=== PATIENT | female | born 1955 | race Caucasian/White ===

== ENCOUNTER → 2018-06-02 13:27 | Outpatient (CLI) | payer MEDICARE, OTHER | END | disposition home or self-care (01) | LOC: D.CT 13:27 | DX: N32.1 Vesicointestinal fistula (principal) ==

== ENCOUNTER → 2018-06-17 07:09 | Outpatient (CLI) | payer MEDICARE, OTHER | END | disposition home or self-care (01) | LOC: D.MRI 07:09 | DX: N28.89 Other specified disorders of kidney and ureter (principal) ==

== ENCOUNTER 2018-06-30 07:57 | Day surgery (SDC) | payer MEDICARE, OTHER ==
[~2018-06-30] VITALS: Ht 157.5 cm; Wt 103.0 kg
--- NOTE | ~2018-06-30 | OP ---
PATIENT NAME: EDISON BRO MEDICAL RECORD: [id number] :51 LOCATION:D.OPS ADMISSION DATE: SURGEON: [place]STON THOMAS MD DATE OF OPERATION: 06/30/2018 SURGEON: [place] Thomas MD ANESTHESIA: TIVA by Gus Garcia CRNA. DIAGNOSES: Hematuria, interstitial cystitis. PROCEDURES: Cystoscopy and intravesical Rimso instillation. FINDINGS: Single ureteral orifices bilaterally, no bladder tumors. Diffuse bladder inflammation. BLOOD LOSS: None. CLINICAL HISTORY: This is a 62-year-old female, who had an issue with microscopic hematuria, pyuria, and recurrent urinary tract infection symptoms. Urine cultures have not shown any growth. She had a CT scan of the abdomen and pelvis, which showed a lesion in the mid pole of the left kidney. This was biopsied recently. Her mother did of a cystic renal cell carcinoma. She comes today to have cystoscopy to finish the hematuria workup and also to treat interstitial cystitis if she has it. THE PATIENT IS ALLERGIC TO BIAXIN, CODEINE, MORPHINE, AND ADHESIVE TAPE. She was given Ancef instructional support services director to the OR. DESCRIPTION OF PROCEDURE: The patient was given IV sedation. She was placed in the dorsal lithotomy position and prepped and draped. A 17-Ethiopian cystoscope with 30-degree lens was used for visualization. The findings are as outlined above. The bladder was emptied through the cystoscope sheath. Through a 16-Ethiopian Cm catheter, we inserted 50 mL of Rimso solution into the bladder. The catheter was then removed, leaving the solution in place. We will bring the patient back to the preoperative holding area. She will come back in July of 2018 to get the second Rimso treatment done. TRANSINT:[id number] Voice Confirmation ID: [id number] DOCUMENT ID: [id number] HOUSTON THOMAS MD at 1448 CC: [id number] DICTATION DATE: 06/30/18 1145 BUSINESS SUPPORT PROFESSIONAL: 06/30/18 1419 [facility] 06/30/[address] [address]
[~2018-06-30 07:57] MED LIST: CALCIUM 600 +1 EAC3 PO; CLARITIN 10 MG10 MG PO; FISH OIL 1,0001 CA1 PO; FLUTICASONE PRO16 GM NASAL; HYDROCHLOROTHIA25 MG PO; KLOR-CON 1010 MEQ PO; LEVOXYL50 MCG PO; LIPITOR20 MG PO; LISINOPRIL10 MG PO; MACRODANTIN100 MG PO; MAG-OX 400 MG400 MG PO; OMEPRAZOLE40 MG PO; PENTASA500 MG PO; PREVACID15 MG; TENORMIN50 MG PO; UROGESIC BLUE; VITAMIN D31000 UNIT PO; ZITHROMAX TRI-500 MG PO; ZOLOFT100 MG PO
[2018-06-30 08:13] LABS: BASOPHILS 0.5 % (0-2); EOSINOPHILS 1.1 % (0-7); HEMATOCRIT 44.1 % (36.0-48.0); HEMOGLOBIN 15.1 g/dL (12-16); IMMATURE GRANULOCYTES 0.3 % (0-5); LYMPHOCYTES 23.9 % (15-50); MCH 29.8 pg (26.0-34.0); MCHC 34.2 g/dL (31.0-37.0); MCV 87.2 fL (80.0-100.0); MEAN PLATELET VOLUME 12.1 fL (7.4-10.4); MONOCYTES 7.5 % (2-11); NEUTROPHILS 66.7 % (40-80); PLATELET COUNT 242 10x3/uL (130-400); RBC 5.06 10x6/uL (4.00-5.40); RDW 14.1 % (11.5-14.5); WBC 9.8 10x3/uL (4.8-10.8)
[2018-06-30 08:23] LABS: INR 0.97 (0.85-1.17); PROTIME 12.4 SECONDS (11.6-15.0)
[2018-06-30 08:24] LABS: APTT 25.9 SECONDS (22.8-39.4)
[2018-06-30] MEDS ORDERED: PEPCID AC20 MG PO (09:01)
[2018-06-30 09:24] VITALS: BP 125/76; Ht 157.5 cm; Wt 103.0 kg
== END 2018-06-30 12:37 | disposition home or self-care (01) ==
LOC: D.OPS 07:57 → D.PAN 09:45 → D.OPS 12:30
PROVIDERS: Anesthesiology
DX: N30.11 Interstitial cystitis (chronic) with hematuria (principal); Z01.812 Encounter for preprocedural laboratory examination

== ENCOUNTER → 2018-08-02 16:50 | Outpatient (CLI) | payer MEDICARE, OTHER ==
[2018-06-30 09:24] VITALS: BMI 41.6
[~2018-08-02 16:50] MED LIST changes: +PEPCID AC20 MG PO
== END | disposition home or self-care (01) ==
LOC: D.LABREF 16:50
DX: D72.829 Elevated white blood cell count, unspecified (principal)

== ENCOUNTER → 2018-08-16 16:33 | Outpatient (CLI) | payer MEDICARE, OTHER ==
[2018-06-30 09:24] VITALS: BMI 41.6
== END | disposition home or self-care (01) ==
LOC: D.LABREF 16:33
DX: D72.829 Elevated white blood cell count, unspecified (principal)

== ENCOUNTER → 2018-09-15 12:24 | Outpatient (CLI) | payer MEDICARE, OTHER ==
[2018-06-30 09:24] VITALS: BMI 41.6
== END | disposition home or self-care (01) ==
LOC: D.LABREF 12:24
PROVIDERS: ATTEND Urology
DX: D72.829 Elevated white blood cell count, unspecified (principal)

== ENCOUNTER → 2018-09-19 08:34 | Outpatient (CLI) | payer MEDICARE, OTHER ==
[2018-06-30 09:24] VITALS: BMI 41.6
== END | disposition home or self-care (01) ==
LOC: D.MRI 08:34
PROVIDERS: ATTEND Radiology Diagnostic Radiology
DX: N28.89 Other specified disorders of kidney and ureter (principal)

== ENCOUNTER → 2018-10-21 16:56 | Outpatient (CLI) | payer MEDICARE, OTHER ==
[2018-06-30 09:24] VITALS: BMI 41.6
== END | disposition home or self-care (01) ==
LOC: D.LABREF 16:56
PROVIDERS: ATTEND Urology
DX: D72.829 Elevated white blood cell count, unspecified (principal)

== ENCOUNTER → 2018-11-18 13:35 | Outpatient (CLI) | payer MEDICARE, OTHER ==
[2018-06-30 09:24] VITALS: BMI 41.6
== END | disposition home or self-care (01) ==
LOC: D.MRI 13:35
PROVIDERS: ATTEND Orthopaedic Surgery
DX: M54.16 Radiculopathy, lumbar region (principal)

== ENCOUNTER → 2018-11-24 14:49 | Outpatient (CLI) | payer MEDICARE, OTHER ==
[2018-06-30 09:24] VITALS: BMI 41.6
== END | disposition home or self-care (01) ==
LOC: D.LABREF 14:49
PROVIDERS: ATTEND Urology
DX: N39.0 Urinary tract infection, site not specified (principal)

== ENCOUNTER → 2018-12-02 13:06 | Outpatient (CLI) | payer MEDICARE, OTHER ==
[2018-06-30 09:24] VITALS: BMI 41.6
--- NOTE | ~2018-12-02 | HEMODYNAMI ---
PATIENT:EDISON BRO MEDICAL RECORD: [id number] : 51 LOCATION:[facility] ADMISSION DATE: 12/02/18 Generatedon:12/02/201814:37 Patient name: EDISON BRO Patient #: [id number] SSN: DO B: 1955 Date of study: 12/02/2018 Page: Of Hemodynamic Procedure Report Patient Data Patient Demographics Procedure consent was obtained First Name: EDISON Gender: Female Last Name: DIEUDONNE : 1955 Patient #: [id number] Age: 63 year(s) Race: Unknown Additional ID: [id number] Contact details [address]: [address] [place] [address] State: [place] City: [place] Zip code: [address] Past Medical History Allergies Allergen Reaction Date Comments Reported Other allergy 12/02/2018 morphine, tape, codiene, biaxin, cipro Admission Admission Data Admission Date: 12/02/2018 Admission Time: 13:06 Procedure Procedure Types Cath Procedure Peripheral Cath Diagnostic Procedure Miscellaneous Epidural Steroid Injection Procedure Description Procedure Date Procedure Date: 12/02/2018 Procedure Start Time: 14:29 Procedure End Time: 14:37 Procedure Staff Name Function Jose Gotti MD Performing Physician FELIX BAEZA RT Monitor Estevan Hawkins RT Scrub Chery Harley RN Nurse Procedure Data Cath Procedure Fluoroscopy Diagnostic fluoroscopy Total fluoroscopy dose: 20 dose: 20 mGy mGy Hemodynamics Rest Pre Cath Intra NCS Post Cath Procedure Log Time Note 14:09:14 Estevan Hawkins RT (R) (CV) sent for patient. Start room use. 14:09:16 Time tracking: Regular hours (M-F 7:00 - 5:00) 14:09:26 Patient received from Outpatients to IR Alert and oriented. Tansferred to table in Prone position. 14:09:43 Correct patient and procedure confirmed by team. 14:09:44 Signed procedure consent form obtained from patient. 14:09:46 - 14:12:15 Patient allergic to Other allergymorphine, tape, codiene, biaxin, cipro 14:14:10 Lumbar area was prepped with betadine and draped in sterile fashion 14:19:26 Physician arrived 14:22:42 --------ALL STOP TIME OUT------ 14:24:03 Final Timeout: patient, procedure, and site verified with staff and physician. All members of the team are in agreement. 14:24:09 Lumbar site verified by team. 14:24:17 KIT EPIDURAL CATHETERIZATION opened to sterile field. 14:25:24 Procedure started. 14:25:24 Full Disclosure recording started 14:29:24 Local anesthetic to Lumbar area with Lidocaine 1% by Jose Gotti MD.INITIAL ACCESS ONLY 14:36:01 Procedure ended.(Physican Out) 14:36:12 Flurop Dose total: 20 14:36:12 Fluoroscopy dose: 20 mGy 14:36:24 Post Lumbar area:stable, band aide applied and patient sent home. 14:37:09 Procedure and supply charges have been captured, reviewed, submitted an d are correct. 14:37:15 Procedure ended. 14:37:15 Full Disclosure recording stopped Device Usage Item Name Manufacture Quantity Catalog Hospital Part Current [facility] Lot# / Number Charge Number Stock Stock Serial# Code KIT EPIDURAL Teleflex 1 [id number] CATHETERIZATION Signature Audit [place] Stage Time Signature Unsigned Intra-Procedure 12/02/2018 FELIX BAEZA RT 2:37:36 PM (R) Signatures Monitor : FELIX BAEZA RT Signature : Date : Time : [facility] [address] [place], [place] [id number]
== END | disposition home or self-care (01) ==
LOC: D.RAD 13:06
PROVIDERS: ATTEND Orthopaedic Surgery
DX: M54.16 Radiculopathy, lumbar region (principal)

== ENCOUNTER → 2018-12-02 15:58 | Outpatient (CLI) | payer MEDICARE, OTHER ==
[2018-06-30 09:24] VITALS: BMI 41.6
== END | disposition home or self-care (01) ==
LOC: D.LABREF 15:58
PROVIDERS: ATTEND Urology
DX: D72.829 Elevated white blood cell count, unspecified (principal)

== ENCOUNTER → 2018-12-13 16:03 | Outpatient (CLI) | payer MEDICARE, OTHER ==
[2018-06-30 09:24] VITALS: BMI 41.6
== END | disposition home or self-care (01) ==
LOC: D.LABREF 16:03
PROVIDERS: ATTEND Urology
DX: N39.0 Urinary tract infection, site not specified (principal)

== ENCOUNTER → 2018-12-23 16:02 | Outpatient (CLI) | payer MEDICARE, OTHER ==
[2018-06-30 09:24] VITALS: BMI 41.6
[~2018-12-23 16:02] MED LIST changes: +LOMOTIL 2.5-0.1 EAC1 PO; +PEPCID AC20 MG
== END | disposition home or self-care (01) ==
LOC: D.LABREF 16:02
PROVIDERS: ATTEND Urology
DX: N39.0 Urinary tract infection, site not specified (principal)

== ENCOUNTER → 2018-12-29 16:08 | Outpatient (CLI) | payer MEDICARE, OTHER ==
[2018-06-30 09:24] VITALS: BMI 41.6
== END | disposition home or self-care (01) ==
LOC: D.LABREF 16:08
PROVIDERS: ATTEND Urology
DX: R31.9 Hematuria, unspecified (principal); D72.829 Elevated white blood cell count, unspecified; Z51.81 Encounter for therapeutic drug level monitoring; Z79.2 Long term (current) use of antibiotics

== ENCOUNTER 2019-01-02 14:28 | Inpatient (IN) | payer MEDICARE, OTHER ==
[~2019-01-02 14:28] MED LIST changes: -LOMOTIL 2.5-0.1 EAC1 PO; -PEPCID AC20 MG
[2019-01-02 16:12] LABS: APPEARANCE HAZY (CLEAR); COLOR DK YELLOW (YELLOW); NITRITE POSITIVE (NEGATIVE)
[2019-01-02 16:13] LABS: BILIRUBIN NEGATIVE (NEGATIVE); GLUCOSE NEGATIVE (NEGATIVE); KETONE NEGATIVE (NEGATIVE); PROTEIN 1+ mg/dL (NEGATIVE); UROBILINOGEN NORMAL (NORMAL); WHITE CELLS - URINE 25-50 /hpf (0-5)
[2019-01-02 16:14] LABS: BACTERIA MANY /hpf (NONE SEEN); EPITHELIAL CELLS 0-5 /hpf (0-5); RED CELLS - URINE 0-5 /hpf (0-5)
[2019-01-02] MEDS ORDERED: LOMOTIL 2.5-0.1 EAC1 PO (16:57)
[2019-01-02] MEDS ORDERED: PEPCID AC20 MG (16:58)
[2019-01-02] MEDS ORDERED: PEPCID AC20 MG PO (16:59)
[2019-01-02] MEDS ORDERED: TENORMIN50 MG PO (17:01)
[2019-01-02 18:33] LABS: BASOPHILS 0.6 % (0-2); EOSINOPHILS 1.3 % (0-7); HEMATOCRIT 41.7 % (36.0-48.0); IMMATURE GRANULOCYTES 0.3 % (0-5); LYMPHOCYTES 26.6 % (15-50); MCH 29.7 pg (26.0-34.0); MCHC 33.6 g/dL (31.0-37.0); MCV 88.5 fL (80.0-100.0); MEAN PLATELET VOLUME 12.7 fL (7.4-10.4); NEUTROPHILS 61.2 % (40-80); PLATELET COUNT 230 10x3/uL (130-400); RBC 4.71 10x6/uL (4.00-5.40); RDW 14.1 % (11.5-14.5); WBC 9.3 10x3/uL (4.8-10.8)
[2019-01-02 18:35] LABS: ANION GAP 16.1 mmol/L (8-16); CALCIUM 9.2 mg/dL (8.5-10.1); CARBON DIOXIDE 26.1 mmol/L (21.0-32.0); CREATININE - SERUM 1.3 mg/dL (0.6-1.3); POTASSIUM - SERUM 4.2 mmol/L (3.5-5.1)
--- NOTE | 2019-01-02 19:59 | NUR ---
PT RESTING IN BED WITH EYES OPEN CALL LIGHT IN REACH WILL MONITER
[2019-01-02 21:30] VITALS: BMI 33.7
[2019-01-02 22:14] VITALS: BP 124/58
--- NOTE | 2019-01-02 23:18 | NUR ---
RESUMING PT CARE, PT IS LAYING IN BED WITH EYES CLOSED, RESPIRATIONS EVEN AND UNLABORED. CALL LIGHT IN REACH, WILL CONTINUE TO MONITOR AND FOLLOW PLAN OF CARE.
[2019-01-03 00:54] VITALS: BP 115/53
[2019-01-03 05:25] VITALS: BP 110/55
[2019-01-03 08:00] VITALS: BP 120/49
--- NOTE | 2019-01-03 08:31 | NUR ---
RESTING WO C/O PAIN. CL IN REACH.
--- NOTE | 2019-01-03 08:33 | NUR ---
PLACED ON CONTACT ISOLATION. MRSA URINE.
--- NOTE | 2019-01-03 11:12 | MORECARE ---
CASE MANAGEMENT DISCHARGE SUMMARY PATIENT: EDISON BRO UNIT: [id number] ADM DATE: 01/02/19 AGE: 63 : 53 SEX: F ROOM/BED: D.1209 AUTHOR: HERVE COLON PHYSICIAN: REFERRING PHYSICIAN: ARAVIND THOMAS MD DATE OF SERVICE: 01/03/19 Discharge Plan Patient Name: EDISON BRO Facility: [facility]:[place] : 1955 Planned Disposition: Home Anticipated Discharge Date: Discharge Date: Expected LOS: Initial Reviewer: [email or web address] Initial Review Date: 01/03/2019 Generated: 01/03/19 12:12 pm Comments DCP- Discharge Planning Updated by TIFFANI: Racheal Lucas on 01/03/19 10:[address] Patient Name: EDISON BRO Admission Status: Elective Accout number: [id number] Admission Date: 01-02-2019 : 1955 Admission Diagnosis: Attending: NAYELY THOMAS Current LOS: 1 Anticipated DC Date: Planned Disposition: Home Primary Insurance: MEDICARE A & B Discharge Planning Comments: CM met with patient to complete initial dc planning assessment. CM educated patient on the CM role and verbal consent given by patient to complete assessment. CM verified patient's address, phone number, and emergency contact phone numbers. Patient lives at home and reports she is independent in her care. At discharge patient plans to return home and feels this is a safe discharge. CM discussed availability of home health, rehab services, and medical equipment. Patient denied known discharge needs at this time. But pt signed GARRET for Planned IV ABX at home for [facility] and [facility] or [facility] Information given to both providers for DC planning. . CM will continue to follow and will assist as needed with dc plans/needs. Environmental Planner: Racheal Lucas Patient Name: EDISON BRO Page [id number] at 1112 All edits/amendments must be made on the electronic document DICTATION DATE: 01/03/19 1112 CREATIVE ART THERAPIST: RICARDO 01/03/19 1112 RPT#: [id number] DC DATE: STATUS: ADM IN [facility] [address] [place] [address] END OF REPORT
[2019-01-03 12:31] VITALS: BP 140/95
--- NOTE | 2019-01-03 17:50 | NUR ---
NO CHANGE IN ASSESSMENT. NO C/O PAIN. AT BS. CL IN REACH.
--- NOTE | 2019-01-03 18:11 | NUR ---
MIDLINE PLACED TODAY PER VASCULAR NURSE MIESHA DORSEY TO R AC. DRESSING CDI.
[2019-01-03 18:25] VITALS: BP 125/67
--- NOTE | 2019-01-03 19:18 | NUR ---
PATIENT IS AMBULATORY AND REFUSED SCD'S.
--- NOTE | 2019-01-03 19:25 | NUR ---
RPEORT RECIEVED AND ROUNDING COMPLETE. PT LAYING IN BED, PT ASKED IF I COULD TAKE OUT HER LEFT HAND PIV SINCE SHE HAD A MIDLINE PLACED TODAY. REMOVED PIV, CATH INTACT NO BLEEDING NOTED. PT IS ISOLATION. PT STATED NO OTHER NEEDS AT THIS TIME CALL LIGHT WITHIN REACH AND BED IN LOWEST POSITION.
[2019-01-03 20:00] VITALS: BP 145/83
[2019-01-04] VITALS: BP 154/78
--- NOTE | 2019-01-04 00:32 | NUR ---
I have reviewed this patient and I concur with the Shift Assessment completed by the Licensed Practical Nurse today this shift.
[2019-01-04 04:00] VITALS: BP 138/71
[2019-01-04 08:30] VITALS: BP 156/79
[2019-01-04 12:18] VITALS: BP 129/60
--- NOTE | 2019-01-04 15:24 | MORECARE ---
CASE MANAGEMENT DISCHARGE SUMMARY PATIENT: EDISON BRO UNIT: [id number] ADM DATE: 01/02/19 AGE: 63 : 53 SEX: F ROOM/BED: D.1209 AUTHOR: HERVE COLON PHYSICIAN: REFERRING PHYSICIAN: ARAVIND THOMAS MD DATE OF SERVICE: 01/04/19 Discharge Plan Patient Name: EDISON BRO Facility: [facility]:[place] : 1955 Planned Disposition: Home Anticipated Discharge Date: Discharge Date: Expected LOS: Initial Reviewer: [email or web address] Initial Review Date: 01/03/2019 Generated: 01/04/19 4:24 pm DCP- Discharge Planning Updated by TIFFANI: Racheal Lucas on 01/03/19 10:[address] Patient Name: EDISON BRO Admission Status: Elective Accout number: [id number] Admission Date: 01-02-2019 : 1955 Admission Diagnosis: Attending: NAYELY THOMAS Current LOS: 1 Anticipated DC Date: Planned Disposition: Home Primary Insurance: MEDICARE A & B Discharge Planning Comments: CM met with patient to complete initial dc planning assessment. CM educated patient on the CM role and verbal consent given by patient to complete assessment. CM verified patient's address, phone number, and emergency contact phone numbers. Patient lives at home and reports she is independent in her care. At discharge patient plans to return home and feels this is a safe discharge. CM discussed availability of home health, rehab services, and medical equipment. Patient denied known discharge needs at this time. But pt signed GARRET for Planned IV ABX at home for [facility] and [facility] [place] Information given to both providers for DC planning. . CM will continue to follow and will assist as needed with dc plans/needs. Men'S Basketball Coach: Racheal Lucas External Providers External Provider: [facility] Next Contact Date: Service Request Date: Service Type: Resolution: Reviewer: Comments: Coverage Notice Reviewer: [email or web address] Mary Lucas Notice Issued Date-Time: 01/03/2019 10:45 Notice Type: Patient Choice Letter Notice Delivered To: Patient Relationship to Patient: Self Investigator Claims Name: Delivery Method: HAND - Hand Delivered Rose Days: Prior Verbal Notification: Recipient Understood Notice: Yes Recipient Signature: Yes Med Rec Note Co-signed by Attending: Coverage Notice Comment: Last DP export: 01/03/19 10:12 a Patient Name: EDISON BRO Page [id number] at 1524 All edits/amendments must be made on the electronic document DICTATION DATE: 01/04/191522 NUMERICAL CONTROL MACHINE TOOL OPERATOR: RICARDO 01/04/191522 RPT#: [id number] DC DATE: STATUS: ADM IN [facility] [address] [place] [address] END OF REPORT
--- NOTE | 2019-01-04 15:36 | MORECARE ---
CASE MANAGEMENT DISCHARGE SUMMARY PATIENT: EDISON BRO UNIT: [id number] ADM DATE: 01/02/19 AGE: 63 : 53 SEX: F ROOM/BED: D.1209 AUTHOR: ISAIAH,DOC PHYSICIAN: REFERRING PHYSICIAN: ARAVIND THOMAS MD DATE OF SERVICE: 01/04/19 Discharge Plan Patient Name: EDISON BOR Facility: [facility]:[place] : 1955 Planned Disposition: Home Anticipated Discharge Date: Discharge Date: Expected LOS: Initial Reviewer: [email or web address] Initial Review Date: 01/03/2019 Generated: 01/04/19 4:36 pm Comments DCP- Discharge Planning Updated by [email or web address]: Sherri Erickson on 01/04/19 2:[address] DC ORDER RECEIVED ALONG WIHT IV INFUSION ORDER FAXED TO [facility]. PATIENT DISCHARGING HOME TODAY WITH [facility] AND [facility]. NO FURTER NEEDS AT THIS TIME. SHERRI ERICKSON RN, [facility] [phone] DCP- Discharge Planning Updated by [email or web address]: Racheal Lucas on 01/03/19 10:[address] Patient Name: EDISON BRO Admission Status: Elective Accout number: [id number] Admission Date: 01-02-2019 : 1955 Admission Diagnosis: Attending: NAYELY THOMAS Current LOS: 1 Anticipated DC Date: Planned Disposition: Home Primary Insurance: MEDICARE A & B Discharge Planning Comments: CM met with patient to complete initial dc planning assessment. CM educated patient on the CM role and verbal consent given by patient to complete assessment. CM verified patient's address, phone number, and emergency contact phone numbers. Patient lives at home and reports she is independent in her care. At discharge patient plans to return home and feels this is a safe discharge. CM discussed availability of home health, rehab services, and medical equipment. Patient denied known discharge needs at this time. But pt signed GARRET for Planned IV ABX at home for Care IV and [facility] [place] Information given to both providers for DC planning. . CM will continue to follow and will assist as needed with dc plans/needs. Editor City: Racheal Lucas Coverage Notice Reviewer: [id number] - Racheal Lucas Notice Issued Date-Time: 01/03/2019 10:45 Notice Type: Patient Choice Letter Notice Delivered To: Patient Relationship to Patient: Self Truck Manager Name: Delivery Method: HAND - Hand Delivered Rose Days: Prior Verbal Notification: Recipient Understood Notice: Yes Recipient Signature: Yes Med Rec Note Co-signed by Attending: Coverage Notice Comment: Last DP export: 01/04/19 2:24 p Patient Name: EDISON BRO Page [phone] at 1536 All edits/amendments must be made on the electronic document DICTATION DATE: 01/04/19 1536 ELECTRICAL EQUIPMENT ASSEMBLER: RICARDO 01/04/19 1536 RPT#: [id number] DC DATE: STATUS: ADM IN [facility] [address] [place] [address] END OF REPORT
== END 2019-01-04 17:43 | disposition home health service (06) | DRG 690 ==
LOC: D.M3 14:28
PROVIDERS: Student in an Organized Health Care Education/Training Program; ADMIT Urology; ATTEND Urology
PROC: 05HB33Z Insertion of Infusion Device into Right Basilic Vein, Percutaneous Approach (ICD-10-PCS; principal; 2019-01-03)
PROC: B54MZZA Ultrasonography of Right Upper Extremity Veins, Guidance (ICD-10-PCS; 2019-01-03)
DX: N10 Acute pyelonephritis (principal); K50.90 Crohn's disease, unspecified, without complications; B96.1 Klebsiella pneumoniae [K. pneumoniae] as the cause of diseases classified elsewhere; Z16.20 Resistance to unspecified antibiotic; I10 Essential (primary) hypertension; N28.9 Disorder of kidney and ureter, unspecified; Z87.891 Personal history of nicotine dependence

== ENCOUNTER → 2019-01-09 15:40 | Outpatient (CLI) | payer MEDICARE, OTHER ==
[2019-01-02 21:30] VITALS: BMI 33.7
[~2019-01-09 15:40] MED LIST changes: +LOMOTIL 2.5-0.1 EAC1 PO; +PEPCID AC20 MG
[2019-01-09 16:30] LABS: BASOPHILS 0.5 % (0-2); EOSINOPHILS 1.6 % (0-7); HEMATOCRIT 40.2 % (36.0-48.0); HEMOGLOBIN 13.4 g/dL (12-16); IMMATURE GRANULOCYTES 0.3 % (0-5); LYMPHOCYTES 21.1 % (15-50); MCH 29.3 pg (26.0-34.0); MCHC 33.3 g/dL (31.0-37.0); MCV 87.8 fL (80.0-100.0); MEAN PLATELET VOLUME 13.2 fL (7.4-10.4); MONOCYTES 8.2 % (2-11); NEUTROPHILS 68.3 % (40-80); PLATELET COUNT 207 10x3/uL (130-400); RBC 4.58 10x6/uL (4.00-5.40); RDW 13.9 % (11.5-14.5); WBC 10.1 10x3/uL (4.8-10.8)
[2019-01-09 16:41] LABS: ANION GAP 13.5 mmol/L (8-16); CALCIUM 9.8 mg/dL (8.5-10.1); CARBON DIOXIDE 29.8 mmol/L (21.0-32.0); CREATININE - SERUM 0.9 mg/dL (0.6-1.3); POTASSIUM - SERUM 4.3 mmol/L (3.5-5.1)
== END | disposition home or self-care (01) ==
LOC: D.LABREF 15:40
PROVIDERS: ATTEND Urology
DX: N39.0 Urinary tract infection, site not specified (principal)

== ENCOUNTER → 2019-01-16 16:00 | Outpatient (CLI) | payer MEDICARE, OTHER ==
[2019-01-02 21:30] VITALS: BMI 33.7
[2019-01-16 16:26] LABS: BASOPHILS 0.5 % (0-2); EOSINOPHILS 1.5 % (0-7); HEMATOCRIT 40.2 % (36.0-48.0); HEMOGLOBIN 13.4 g/dL (12-16); IMMATURE GRANULOCYTES 0.4 % (0-5); LYMPHOCYTES 27.5 % (15-50); MCH 29.6 pg (26.0-34.0); MCHC 33.3 g/dL (31.0-37.0); MCV 88.9 fL (80.0-100.0); MEAN PLATELET VOLUME 12.6 fL (7.4-10.4); MONOCYTES 7.8 % (2-11); NEUTROPHILS 62.3 % (40-80); PLATELET COUNT 182 10x3/uL (130-400); RBC 4.52 10x6/uL (4.00-5.40); WBC 7.9 10x3/uL (4.8-10.8)
[2019-01-16 16:29] LABS: CALC OSMOLALITY 286 mosm/kg (275-300); CALCIUM 9.7 mg/dL (8.5-10.1); CARBON DIOXIDE 31.4 mmol/L (21.0-32.0); CHLORIDE - SERUM 104 mmol/L (98-107); CREATININE - SERUM 0.8 mg/dL (0.6-1.3); GLUCOSE 108 mg/dL (74-106); POTASSIUM - SERUM 4.2 mmol/L (3.5-5.1); SODIUM 143 mmol/L (136-145); UREA NITROGEN 15 mg/dL (7-18); eGFR NON AFRICAN AMERICAN 76 mL/min (90-120)
== END | disposition home or self-care (01) ==
LOC: D.LABREF 16:00
PROVIDERS: ATTEND Urology
DX: N12 Tubulo-interstitial nephritis, not specified as acute or chronic (principal)

== ENCOUNTER → 2019-01-18 14:13 | Outpatient (CLI) | payer MEDICARE, OTHER ==
[2019-01-02 21:30] VITALS: BMI 33.7
[2019-01-18 16:15] LABS: APPEARANCE CLEAR (CLEAR); BILIRUBIN NEGATIVE (NEGATIVE); COLOR YELLOW (YELLOW); GLUCOSE NEGATIVE (NEGATIVE); KETONE NEGATIVE (NEGATIVE); NITRITE NEGATIVE (NEGATIVE); PROTEIN NEGATIVE (NEGATIVE); UROBILINOGEN NORMAL (NORMAL)
== END | disposition home or self-care (01) ==
LOC: D.LABREF 14:13
PROVIDERS: ATTEND Urology
DX: N12 Tubulo-interstitial nephritis, not specified as acute or chronic (principal)

== ENCOUNTER → 2019-01-31 13:01 | Outpatient (CLI) | payer MEDICARE, OTHER ==
[2019-01-02 21:30] VITALS: BMI 33.7
== END | disposition home or self-care (01) ==
LOC: D.CT 13:01
PROVIDERS: ATTEND Urology
DX: N28.1 Cyst of kidney, acquired (principal)

== ENCOUNTER → 2019-03-16 15:58 | Outpatient (CLI) | payer MEDICARE, OTHER | END | disposition home or self-care (01) | LOC: D.LABREF 15:58 | PROVIDERS: ATTEND Urology | DX: R30.0 Dysuria (principal) ==

== ENCOUNTER → 2019-05-10 20:36 | Outpatient (CLI) | payer MEDICARE, OTHER ==
[~2019-05-10 20:36] MED LIST changes: +METHENAMINE HIPP1 GM PO
== END | disposition home or self-care (01) ==
LOC: D.LABREF 20:36
PROVIDERS: ATTEND Urology
DX: R31.9 Hematuria, unspecified (principal)

== ENCOUNTER → 2019-06-01 09:12 | Outpatient (CLI) | payer MEDICARE, OTHER | END | disposition home or self-care (01) | LOC: D.MRI 04-05 10:00 | PROVIDERS: ATTEND Radiology Diagnostic Radiology | DX: N28.89 Other specified disorders of kidney and ureter (principal) ==

== ENCOUNTER 2019-06-13 06:16 | Day surgery (SDC) | payer MEDICARE, OTHER ==
[~2019-06-13] VITALS: Ht 213.4 cm; Wt 100.0 kg
[2019-06-13 06:54] LABS: BASOPHILS 0.3 % (0-2); EOSINOPHILS 1.5 % (0-7); HEMATOCRIT 43.5 % (36.0-48.0); HEMOGLOBIN 14.7 g/dL (12-16); IMMATURE GRANULOCYTES 0.2 % (0-5); LYMPHOCYTES 26.5 % (15-50); MCH 30.1 pg (26.0-34.0); MCHC 33.8 g/dL (31.0-37.0); MEAN PLATELET VOLUME 12.7 fL (7.4-10.4); MONOCYTES 8.3 % (2-11); NEUTROPHILS 63.2 % (40-80); RBC 4.89 10x6/uL (4.00-5.40); WBC 8.6 10x3/uL (4.8-10.8)
[2019-06-13 06:57] LABS: CALC OSMOLALITY 282 mosm/kg (275-300); CALCIUM 10.2 mg/dL (8.5-10.1); CARBON DIOXIDE 29.5 mmol/L (21.0-32.0); CHLORIDE - SERUM 103 mmol/L (98-107); CREATININE - SERUM 0.7 mg/dL (0.6-1.3); GLUCOSE 140 mg/dL (74-106); POTASSIUM - SERUM 3.6 mmol/L (3.5-5.1); SODIUM 141 mmol/L (136-145); UREA NITROGEN 12 mg/dL (7-18); eGFR NON AFRICAN AMERICAN 89 mL/min (90-120)
[2019-06-13 06:58] LABS: APTT 26.8 SECONDS (22.8-39.4); PROTIME 12.7 SECONDS (11.6-15.0)
[2019-06-13 07:10] LABS: PLATELET COUNT 230 10x3/uL (130-400)
[2019-06-13 08:31] VITALS: BP 130/72; Ht 213.4 cm; Wt 100.0 kg
--- NOTE | 2019-06-13 14:31 | NUR ---
PT/SPOUSE IS RECEIVING INTRUCTIONS REGARDING BLADDER STIMULATOR/CONTROLLER.
--- NOTE | 2019-06-13 14:44 | NUR ---
DC INSTRUCTIONS GIVEN TO PT/SPOUSE. STATE UNDERSTANDING. DC'D IV CATH FULLY INTACT.
--- NOTE | 2019-06-13 15:07 | NUR ---
PT LEFT UNIT VIA WC AT 1500
--- NOTE | 2019-06-14 11:58 | OP ---
PATIENT NAME: EDISON BRO MEDICAL RECORD: [id number] :[birth year] LOCATION:D.OPS ADMISSION DATE: SURGEON: ARAVIND THOMAS MD DATE OF OPERATION: 06/13/2019 SURGEON: Aravind Thomas MD ANESTHESIA: TIVA by Janiya Metz CRNA DIAGNOSIS: Urge urinary incontinence, fecal incontinence, and recurrent urinary tract infections. PROCEDURE: Axonics, stage I. FINDINGS: Good phyllis and toe flexion response on the right S3 nerve. ESTIMATED BLOOD LOSS: None. CLINICAL HISTORY: This is a 63-year-old female with urge urinary incontinence. She also has urge fecal incontinence due to Crohn's disease. She has tried medications, which have not helped her symptoms. Because of the fecal incontinence and vaginal contamination, she has recurrent urinary tract infections. She also has a bad back and therefore she cannot tolerate having the InterStim device by [employer] as she will require periodic MRIs of her back. We are now trying the Axonics sacral neural modulator. This is approved for whole body MRI up to 1.5 Allyn. She was given Ancef certified pest control technician to the OR. DESCRIPTION OF PROCEDURE: The patient was placed in prone position, given IV sedation. She was prepped and draped. Under fluoroscopy, I outlined the role of sacral foramen and marked this along the skin with a marking pen. The level of the S3 foramen was also marked out. The skin overlying the S2 foramen was infiltrated with 0.25% Marcaine with epinephrine. Spinal needles were inserted on each side. I managed to get into the S3 foramen on the right side, but on the left side, it was extremely difficult to get into the S3 foramen. I abandoned further attempts, especially as the result from the S3 nerve root on the right side were excellent. We tested all 4 channels and she had an excellent response with low current required. Each of the channels required less than 2 mill amps to elicit a full phyllis and toe flexion response. About 4c m inferior to the iliac crest at the right lateral edge of our lead length, we made a small 1 cm incision. A small subcutaneous pocket was made using the back end of a forceps. The tunneling device was used to bring the permanent electrode to this new site at the right iliac crest region. Here, the device was connected to the temporary test electrode. The tunneling device was then used to run the temporary test electrode subcutaneously out through an exit site near the midpoint of the body, cranial to the electrode insertion site. The impedances were checked on all 4 channels and they were within the specifications. The incisions were closed with majo. Dressings were applied. She will be fitted with a temporary pacemaker and the pacemaker algorithm will be determined by artificial intelligence based on the professional programmer analyst. I will see her back next week to check on her symptomatic response to the neurostimulator. TRANSINT:[id number] Voice Confirmation ID: [id number] DOCUMENT ID: [id number] OPERATIVE REPORT [id number] EDISON BRO ROBERT S MD at 1158 CC: [id number] DICTATION DATE: 06/13/19 140 [facility]: 06/13/19 1705 [facility] 06/13/19 [place] [id number] [place] [address]
== END 2019-06-13 15:00 | disposition home or self-care (01) ==
LOC: D.OPS 06:16
PROVIDERS: Anesthesiology; ATTEND Urology
DX: N39.41 Urge incontinence (principal); R15.9 Full incontinence of feces; N39.0 Urinary tract infection, site not specified; K50.90 Crohn's disease, unspecified, without complications

== ENCOUNTER 2019-06-22 05:08 | Day surgery (SDC) | payer MEDICARE, OTHER ==
[~2019-06-22] VITALS: Ht 157.5 cm; Wt 99.8 kg
[2019-06-22 06:12] LABS: HEMATOCRIT 43.5 % (36.0-48.0); HEMOGLOBIN 14.7 g/dL (12-16); MCH 29.5 pg (26.0-34.0); MCHC 33.8 g/dL (31.0-37.0); MCV 87.2 fL (80.0-100.0); MEAN PLATELET VOLUME 12.6 fL (7.4-10.4); RBC 4.99 10x6/uL (4.00-5.40); RDW 14.2 % (11.5-14.5); WBC 8.7 10x3/uL (4.8-10.8)
[2019-06-22 06:20] VITALS: BP 146/83; Ht 157.5 cm; Wt 99.8 kg
--- NOTE | 2019-06-22 08:52 | NUR ---
0838-REC'D FROM SURGERY. AWAKE AND ALERT WITHOUT PAIN. VSS. SPOUSE AT BEDSIDE. CL IN EASY REACH. DRINK AT BEDSIDE. FOOD TRAY ORDERED
--- NOTE | 2019-06-22 09:11 | OP ---
PATIENT NAME: EDISON BRO MEDICAL RECORD: [id number] :[birth year] LOCATION:D.[facility] ADMISSION DATE: SURGEON: ARAVIND THOMAS MD DATE OF OPERATION: 06/22/2019 SURGEON: Aravind Thomas MD ANESTHESIA: TIVA by Janiya Metz CRNA. DIAGNOSES: Urge urinary incontinence, fecal incontinence, Crohn's disease. PROCEDURE: Axonics stage II, permanent pacemaker implantation. ESTIMATED BLOOD LOSS: Minimal. CLINICAL HISTORY: This is a 63-year-old female, who has urge urinary incontinence as well as fecal incontinence due to Crohn's disease. She has recurrent urinary tract infections as a result. She failed medical treatment. We tried the Axonics stage I and she had a dramatic improvement. She no longer has urge urinary incontinence. She has had only 2 episodes of fecal incontinence during the trial period, which was over 1 week. These were when the device was initially put in, but she then noted that the stool has now solidified due to reduced bowel transit and now she is having formed stools. She wishes to proceed with the permanent pacemaker implantation. She is allergic to multiple antibiotics including BIAXIN, CIPRO, CODEINE, MORPHINE, AND ADHESIVE TAPE. She was given Ancef admission discharge rn to the OR. DESCRIPTION OF PROCEDURE: The patient was placed in prone position on the OR table. Under fluoroscopy, we marked out the location of the permanent pacemaker implant site at 4 cm below the iliac crest. She has a small incision in this area from her stage I, where the permanent pacemaker lead was connected to the temporary pacemaker lead. Once she was given IV sedation, she was prepped and draped. The small incision in the right buttock area was reopened. It was about 1 cm length. A right angle clamp was used to find the lead wire. The permanent pacemaker lead and the connection as well as the temporary lead was found and isolated. The connection between the two was disrupted by loosening the locking screw. Once the locking screw was loosened, this portion of the temporary pacemaker lead was cut off. The temporary pacemaker lead could then be pulled away from the patient and removed entirely. The end of the permanent pacemaker lead was then cleaned with a dry Ray-Kuldeep sponge. It was inserted into the permanent pacemaker. The locking screw was tightened down to lock the permanent electrode into the pacemaker. An [facility] retractor was then used to make a subcutaneous pocket right underneath the skin. This was placed medial to the incision. It was then discovered that the incision was too small to admit the pacemaker. I lengthened the incision gradually by incising on its lateral edge. Finally, when the incision length overall was about 2.5 cm in length, the pacemaker could be placed into the pocket. It lies completely flat under the skin. It is just below the skin level with very minimal intervening fat. The wound was irrigated out with normal saline. A 2-layer closure was then performed with simple interrupted 3-0 Vicryl to reapproximate the space and the fat. The skin was then closed using a running subcuticular 4-0 Monocryl. Steri-Strips were then applied. I will see the patient in followup in 1-2 weeks to check on the wound healing. TRANSINT:[id number] Voice Confirmation ID: [id number] DOCUMENT ID: [id number] OPERATIVE REPORT [id number] EDISON BRO ROBERT S MD at 0911 CC: [id number] DICTATION DATE: 06/22/19840 PLANT ANATOMY TEACHER: 06/22/19 0900 [facility] [address] [place] [address]
--- NOTE | 2019-06-22 09:52 | NUR ---
0930-REPORTS PAIN / TO INCISIONAL SITE,DESCRIBES "DULL" ADMINISTERED NORCO 7.5/325MG 1 BY MOUTH. VSS. AMBULATED WITH SLOW STEADY GAIT AND URINATED WITHOUT COMPLICATIONS. DRESSING TO BACK CDI.
--- NOTE | 2019-06-22 09:53 | NUR ---
0940-REMOVED IV FROM LEFT WRIST WITH CATH INTACT, DISPOSED INTO SHARPS. COVERED SITE WITH COTTON BALL AND SECURED WITH TAPE. REVIEWED POST OPERATIVE INSTRUCTIONS WITH PT,SPOUSE IN ROOM. VERBALIZED UNDERSTANDING WITHOUT FURTHER QUESTIONS OR CONCERNS.
--- NOTE | 2019-06-22 09:55 | NUR ---
0943-ESCORTED OUT VIA W/C WITH SPOUSE AWAITING TO DRIVE HOME.
== END 2019-06-22 09:43 | disposition home or self-care (01) ==
LOC: D.OPS 05:08 → D.PAN 10:40 → D.OPS 10:40
PROVIDERS: Anesthesiology; ATTEND Urology
DX: N39.41 Urge incontinence (principal); R15.9 Full incontinence of feces; K50.90 Crohn's disease, unspecified, without complications; E03.9 Hypothyroidism, unspecified; E78.5 Hyperlipidemia, unspecified

== ENCOUNTER → 2019-09-08 12:49 | Outpatient (CLI) | payer MEDICARE, OTHER ==
[2019-06-22 06:20] VITALS: BMI 40.3
== END | disposition home or self-care (01) ==
LOC: D.MRI 12:49
PROVIDERS: ATTEND Orthopaedic Surgery
DX: S83.241A Other tear of medial meniscus, current injury, right knee, initial encounter (principal)

== ENCOUNTER 2019-09-15 06:50 | Day surgery (SDC) | payer MEDICARE, OTHER ==
[2019-09-14 11:01] LABS: HEMATOCRIT 44.5 % (36.0-48.0); HEMOGLOBIN 14.9 g/dL (12-16); MCH 29.6 pg (26.0-34.0); MCHC 33.5 g/dL (31.0-37.0); MCV 88.3 fL (80.0-100.0); MEAN PLATELET VOLUME 12.3 fL (7.4-10.4); RBC 5.04 10x6/uL (4.00-5.40); RDW 14.3 % (11.5-14.5); WBC 8.5 10x3/uL (4.8-10.8)
[2019-09-14 11:09] LABS: CALC OSMOLALITY 286 mosm/kg (275-300); CALCIUM 9.3 mg/dL (8.5-10.1); CARBON DIOXIDE 30.9 mmol/L (21.0-32.0); CHLORIDE - SERUM 104 mmol/L (98-107); CREATININE - SERUM 0.8 mg/dL (0.6-1.3); GLUCOSE 148 mg/dL (74-106); SODIUM 143 mmol/L (136-145); UREA NITROGEN 11 mg/dL (7-18); eGFR NON AFRICAN AMERICAN 76 mL/min (90-120)
[~2019-09-15] VITALS: Ht 157.5 cm; Wt 99.8 kg
[~2019-09-15 06:50] MED LIST changes: +EFFEXOR75 MG PO; +OMEPRAZOLE20 M1 PO
[2019-09-15 07:37] VITALS: BP 132/77; Ht 157.5 cm; Wt 99.8 kg
[2019-09-15] MEDS ORDERED: VISTARIL50 MG PO (10:21)
[2019-09-15] MEDS ORDERED: DILAUDID4 MG PO (10:21)
[2019-09-15] MEDS ORDERED: ZOFRAN ODT4 MG/UDTAB PO (10:21)
--- NOTE | 2019-09-15 13:25 | NUR ---
MATHIEU BECKETT BAIT PACKER IN ROOM ADMINISTERING RIGHT UPPER EXTREMITY PERIPHERAL NERVE BLOCK WITH BERNARDO QUACH RN ASSISTING.
--- NOTE | 2019-09-15 14:15 | NUR ---
PATIENT C/O ITCHING ON FACE AND CHEST, STATES "I HAVE ITCHING WITH A LOT OF PAIN MEDS. I NEED A BENADRYL." NO RASH OR HIVES NOTED. NO OTHER SYMPTOMS OF ALLERGIC REACTION NOTED. CALL PLACED TO [facility] SOPHY LOPEZ AND ORDER IS GIVEN FOR BENADRYL
--- NOTE | 2019-09-15 14:55 | NUR ---
PATIENT AWAKE, ALERT, STATES ITCHING IS MUCH BETTER, WANTS TO GO HOME. RIGHT HAND PAIN HAS BEEN ABSENT SINCE NERVE BLOCK, PATIENT STATES ARM AND HAND IS NUMB. ARM SLING IN PLACE AND IN GOOD POSITION. LEFT HAND PIV DC'D WITH TIP INTACT. PATIENT DRESSING IN PERSONAL CLOTHING WITH SPOUSE'S ASSISTANCE
--- NOTE | 2019-09-15 15:10 | NUR ---
DISCHARGE INSTRUCTIONS REVIEWED WITH PATIENT AND SPOUSE, O2 SAT 95% ON RA. DISCHARGED HOME VIA WHEELCHAIR TO PRIVATE VEHICLE WITH SPOUSE
--- NOTE | 2019-09-15 16:23 | OP ---
PATIENT NAME: EDISON ALONZO MEDICAL RECORD: [id number] :51 LOCATION:D.OPS ADMISSION DATE: SURGEON: CACHORRO ORTIZ DO DATE OF OPERATION: 09/15/2019 PROCEDUREs PERFORMED: Right endoscopic carpal tunnel release, right thumb CMC arthroplasty. PREOPERATIVE DIAGNOSES: Right carpal tunnel syndrome and right thumb CMC joint arthritis. POSTOPERATIVE DIAGNOSES: Right carpal tunnel syndrome and right thumb CMC joint arthritis. INDICATIONS: Ms. Alonzo is a 63-year-old female, who has been dealing with right carpal tunnel symptoms for quite some time. It has been waking her up at night and has been tired dealing with that and dealing with the pain. She had a nerve conduction study that showed her having mild carpal tunnel at the right wrist. She said that her pain is very severe and had a positive carpal tunnel compression test on exam. She also had a positive CMC thumb grind test and was tired of dealing with that. She wore a brace to no avail. She is aware of the risks including infection, bleeding, damage to nerves or vessels, continued thumb pain and continued numbness in median nerve, bleeding, infection and continued pain as well as loss of motion of the thumb, and she signed the consent. SURGEON: Cachorro Ortiz DO DESCRIPTION OF PROCEDURE: The patient was taken to the operative suite, laid in the supine position, given general anesthetic and LMA was placed. She was given 2 grams of Ancef preoperatively. Right upper extremity was then prepped and draped in sterile fashion. A timeout had been performed. Everyone was in agreement with correct site, side, patient, and procedure. We then began with the carpal tunnel first and then exsanguinated the right upper extremity and tourniquet was inflated to 250 mmHg, it was up for 45 minutes. We then made an incision in the volar wrist crease, dissected down to the median nerve, released the forearm fascia from distal to proximal at the incision site and then entered the carpal tunnel with the dilators and then put the 4-mm scope sheath in. Used a 4-mm scope and brought it in and used the rasp and the probe to ensure there was no transligamentous nerve and it did not appear to be. The blade was then brought in and raised up and transected the transverse carpal ligament. Fat herniated down into the carpal tunnel itself, had a nice release. I then removed all the tools from the carpal tunnel and used a pickup and scissors to spread to make sure there were no remaining fibers in the transcarpal ligament and there were not. Then I closed the wound with 4-0 Monocryl in an inverted interrupted fashion. Then, attention was drawn to the CMC thumb arthroplasty part of it. An incision was made over the thumb CMC joint on the volar and dorsal border. Careful dissection was made down to the CMC joint. The capsule was then removed and the thumb metacarpal was exposed. The incision was then made over the second metacarpal on the dorsal side and careful dissection was made down to it. I then passed the pin from the base of the thumb through the second metacarpal shaft. It was confirmed to be in good position on x-ray and passed a suture with button on it and the button was secured on the thumb side and then cut the suture in each of the two tails of the suture and put another button over the second metacarpal and tied it down. Once it was in appropriate OPERATIVE REPORT [id number] EDISON ALONZO position, it was tied down and then the trapezium was removed and then readjusted the tautness of the tie. I noted her to have good thumb motion and did appear to be stable. Once it was in good position, we then let the tourniquet down. Any bleeding was coagulated with a bipolar. She did have some bleeding, and this was coagulated with bipolar and stopped. We then irrigated the wound and closed the capsule with 2-0 Vicryl in a simple fashion. Skin was then closed with 2-0 Vicryl in an inverted interrupted fashion at that site and running stitch was placed on the skin. We then used over the second metacarpal horizontal mattress stitch to close the skin. She was dressed with Adaptic, 4 x 4s, and cast padding and a thumb spica splint was placed on her and secured in place with an Jesús wrap. She was then awakened and taken to recovery in stable condition. Blood loss was approximately 20 mL. COMPLICATIONS: None. TRANSINT:[id number] Voice Confirmation ID: [id number] DOCUMENT ID: [id number] CACHORRO ORTIZ DO at 1623 CC: [id number] DICTATION DATE: 09/15/19 1139 THIRD COOK: 09/15/19 1417 [facility] [address] [id number]
== END 2019-09-15 15:10 | disposition home or self-care (01) ==
LOC: D.OPS 06:50 → D.PAN 07:00 → D.OPS 09:15 → D.PAN 14:00 → D.OPS 15:10
PROVIDERS: Anesthesiology; ATTEND Orthopaedic Surgery
DX: G56.01 Carpal tunnel syndrome, right upper limb (principal); M18.9 Osteoarthritis of first carpometacarpal joint, unspecified; K21.9 Gastro-esophageal reflux disease without esophagitis; I10 Essential (primary) hypertension; E07.9 Disorder of thyroid, unspecified

== ENCOUNTER → 2019-10-04 17:10 | Outpatient (CLI) | payer MEDICARE, OTHER ==
[2019-09-15 07:37] VITALS: BMI 40.3
[~2019-10-04 17:10] MED LIST changes: +DILAUDID4 MG PO; +VISTARIL50 MG PO; +ZOFRAN ODT4 MG/UDTAB PO
== END | disposition home or self-care (01) ==
LOC: D.LABREF 17:10
PROVIDERS: ATTEND Urology
DX: R82.90 Unspecified abnormal findings in urine (principal)

== ENCOUNTER → 2019-10-16 17:12 | Outpatient (CLI) | payer MEDICARE, OTHER ==
[2019-09-15 07:37] VITALS: BMI 40.3
== END | disposition home or self-care (01) ==
LOC: D.LABREF 17:12
PROVIDERS: ATTEND Urology
DX: R82.90 Unspecified abnormal findings in urine (principal)

== ENCOUNTER 2019-11-14 05:19 | Day surgery (SDC) | payer MEDICARE, OTHER ==
[~2019-11-14] VITALS: Ht 157.5 cm; Wt 99.8 kg
[2019-11-14 05:47] LABS: HEMATOCRIT 43.4 % (36.0-48.0); HEMOGLOBIN 14.2 g/dL (12-16); MCH 29.5 pg (26.0-34.0); MCHC 32.7 g/dL (31.0-37.0); MEAN PLATELET VOLUME 11.7 fL (7.4-10.4); RBC 4.82 10x6/uL (4.00-5.40); RDW 14.4 % (11.5-14.5); WBC 11.7 10x3/uL (4.8-10.8)
[2019-11-14 06:12] LABS: CALC OSMOLALITY 282 mosm/kg (275-300); CALCIUM 9.2 mg/dL (8.5-10.1); CARBON DIOXIDE 31.6 mmol/L (21.0-32.0); CHLORIDE - SERUM 105 mmol/L (98-107); CREATININE - SERUM 0.7 mg/dL (0.6-1.3); GLUCOSE 111 mg/dL (74-106); POTASSIUM - SERUM 3.6 mmol/L (3.5-5.1); SODIUM 141 mmol/L (136-145); UREA NITROGEN 16 mg/dL (7-18); eGFR NON AFRICAN AMERICAN 89 mL/min (90-120)
[2019-11-14 06:41] VITALS: BP 133/76; Ht 157.5 cm; Wt 99.8 kg
[2019-11-14] MEDS ORDERED: ZOFRAN ODT4 MG/UDTAB PO (08:56)
[2019-11-14] MEDS ORDERED: HYDROCODON-ACE1 EAC7 PO (08:57)
[2019-11-14] MEDS ORDERED: VISTARIL50 MG PO (08:57)
--- NOTE | 2019-11-14 09:25 | NUR ---
0900 PATIENT COMPLAINING OF PAIN. Hunter DAVILA CRNA REAPPLYING NERVE BLOCK.
--- NOTE | 2019-11-14 10:35 | NUR ---
1018 PT IS C/O PAIN IN RIGHT HAND. STATES HER RE BLOCK IN HAND DOES NOT SEEM TO BE EFFECTIVE. PT WANTS PAIN MEDICATION PRIOR TO BEING DISCHARGED HOME
--- NOTE | 2019-11-14 11:53 | NUR ---
1100 IV DC'D. CATHETER TIP INTACT. NO BLEEDING AT SITE. BANDAID APPLIED.
--- NOTE | 2019-11-14 12:03 | OP ---
PATIENT NAME: EDISON ALONZO MEDICAL RECORD: [id number] :51 LOCATION:R[facility] ADMISSION DATE: SURGEON: JORGE L ORTIZ DO DATE OF OPERATION: 11/14/2019 PROCEDURE PERFORMED: Revision of the right thumb CMC joint arthroplasty. PREOPERATIVE DIAGNOSES: Painful hardware and cyst formation of the right CMC arthroplasty. POSTOPERATIVE DIAGNOSES: Painful hardware and cyst formation of the right CMC arthroplasty. INDICATIONS: Ms. Alonzo is a 64-year-old female who had a right CMC arthroplasty done approximately 6-7 weeks ago. She had been wearing a splint and when she got it off, she noticed she had a cyst over the incision on the second metacarpal where the button was and the suture is quite large and is rubbing on her tendons, it is obviously reaction of the hardware and where the suture was. I told her we go take the cyst out and then probably redo the CMC arthroplasty just to avoiding suture rubbing there and reposition the button. She is okay with that and is aware of the risks including infection, bleeding, damage to the radial sensory nerve, continued pain, cyst reformation, and signed the consent. SURGEON: Jorge L Ortiz DO DESCRIPTION OF PROCEDURE: The patient was taken to the operative suite after given a block by anesthesia in preoperative area, given 2 grams Ancef laid in supine position. She is originally tried with TIVA, but the block could not sit up enough and she was sedated and LMA was placed. The right upper extremity was prepped and draped in a sterile fashion prior to sedation LMA. A time-out was performed, everyone was in agreement of the correct side, site, patient and procedure. We then exsanguinated the right upper extremity with an Esmarch. Tourniquet was inflated to 250 mmHg, it was up for 32 minutes. We then began by testing, the patient and she did not tolerate it, so she was sedated and LMA was placed. I then began with incision over the second metacarpal on the dorsal surface. There was a large cyst noted there just near the extensor digitorum communis going to the index finger. I then took the cyst out and it was all around the suture that was on the button. I then took the suture and the button out and then dressed the thumb side of the CMC arthroplasty button and removed it. I tested the thumb to see if it was stable enough to not put anything back in there, it was not and did sublux quite a bit, so I repositioned the button, which I then put from the second metacarpal into the thumb reversing the directions. Therefore, she would not have any sutures exposed on that side and putting a little more volar in the bone. One pin did shear off, I removed that. We used a second pin and once it was in adequate position, I ran the TightRope through with a button on the second metacarpal and then tied it on the first or the thumb metacarpal in good position under x-ray and the thumb did not sublux. Once I put 3 knots and I took the sutures through the soft tissue and then ran it back through itself, so there would not be a prominent knot. This was then cut and the tourniquet was let down. It is then closed by Arun Stewart, certified surgical personnel assistant with 4-0 Monocryl in a horizontal mattress fashion. She had a reaction to Vicryl last time, so we just used Monocryl this time. She was then anesthetized with 0.25% Marcaine with epinephrine 10 mL in the radial sensory nerve area over the wrist and then dressed with Adaptic, 4 x OPERATIVE REPORT [id number] EDISON ALONZO, cast padding, and placed in a thumb spica splint. She was awakened and taken to recovery in stable condition. ESTIMATED BLOOD LOSS: Minimal. COMPLICATIONS: None. TRANSINT:[id number] Voice Confirmation ID: [id number] DOCUMENT ID: [id number] JORGE L ORTIZ DO at 1203 CC: [id number] DICTATION DATE: 11/14/19 0850 RESPIRATORY MEDICINE PHYSICIAN: 11/14/19 1157 [facility] 11/14/19 [facility] [address] [id number]
== END 2019-11-14 11:15 | disposition home or self-care (01) ==
LOC: D.PAN 05:19 → D.OPS 13:30
PROVIDERS: Anesthesiology; ATTEND Orthopaedic Surgery
DX: T85.9XXA Unspecified complication of internal prosthetic device, implant and graft, initial encounter (principal); S64.21XA Injury of radial nerve at wrist and hand level of right arm, initial encounter; M18.11 Unilateral primary osteoarthritis of first carpometacarpal joint, right hand; X58.XXXA Exposure to other specified factors, initial encounter; E03.9 Hypothyroidism, unspecified; E78.5 Hyperlipidemia, unspecified; I10 Essential (primary) hypertension; G56.01 Carpal tunnel syndrome, right upper limb; K21.9 Gastro-esophageal reflux disease without esophagitis

== ENCOUNTER → 2020-01-03 15:43 | Outpatient (CLI) | payer MEDICARE, OTHER ==
[2019-11-14 06:41] VITALS: BMI 40.3
[~2020-01-03 15:43] MED LIST changes: +HYDROCODON-ACE1 EAC7 PO
== END | disposition home or self-care (01) ==
LOC: D.MRI 15:43
PROVIDERS: ATTEND Orthopaedic Surgery
DX: M25.562 Pain in left knee (principal)

== ENCOUNTER → 2020-01-23 09:34 | Outpatient (CLI) | payer MEDICARE, OTHER ==
[2019-11-14 06:41] VITALS: BMI 40.3
== END | disposition home or self-care (01) ==
LOC: D.CT 09:34
PROVIDERS: ATTEND Urology
DX: K50.012 Crohn's disease of small intestine with intestinal obstruction (principal)

== ENCOUNTER → 2020-03-24 20:31 | Outpatient (CLI) | payer MEDICARE, OTHER ==
[2019-11-14 06:41] VITALS: BMI 40.3
[~2020-03-24 20:31] MED LIST changes: +ENTOCORT EC3 MG PO; +[UNRECOGNIZED DRUG - CODE] PO
== END | disposition home or self-care (01) ==
LOC: D.LABREF 20:31
PROVIDERS: ATTEND Emergency Medicine
DX: N39.0 Urinary tract infection, site not specified (principal)

== ENCOUNTER → 2020-04-11 08:20 | Outpatient (CLI) | payer MEDICARE, OTHER ==
[2019-11-14 06:41] VITALS: BMI 40.3
== END | disposition home or self-care (01) ==
LOC: D.CT 08:20
PROVIDERS: ATTEND Surgery
DX: R10.9 Unspecified abdominal pain (principal); K50.90 Crohn's disease, unspecified, without complications

== ENCOUNTER 2020-04-22 08:59 | Inpatient (IN) | payer MEDICARE, OTHER ==
[~2020-04-22] VITALS: Ht 162.6 cm; Wt 101.6 kg
[2020-04-22] MEDS ORDERED: ENTOCORT EC3 MG PO (11:30)
[2020-04-22] MEDS ORDERED: ENTYVIO IV (11:33)
[2020-04-22] MEDS ORDERED: IMVEXXY VG (11:34)
[2020-04-22] MEDS ORDERED: NYAMYC60 GM (11:39)
[2020-04-22] MEDS ORDERED: MACRODANTIN100 MG (11:41)
[2020-04-22] MEDS ORDERED: PENTASA500 MG (11:42)
[2020-04-22] MEDS ORDERED: ASCORBIC ACID500 MG PO (11:45)
[2020-04-22 12:28] LABS: BASOPHILS 0.3 % (0-2); EOSINOPHILS 1.5 % (0-7); HEMATOCRIT 44.5 % (36.0-48.0); HEMOGLOBIN 14.6 g/dL (12-16); IMMATURE GRANULOCYTES 0.4 % (0-5); LYMPHOCYTES 23.3 % (15-50); MCH 29.7 pg (26.0-34.0); MCHC 32.8 g/dL (31.0-37.0); MCV 90.6 fL (80.0-100.0); MEAN PLATELET VOLUME 12.3 fL (7.4-10.4); MONOCYTES 9.6 % (2-11); NEUTROPHILS 64.9 % (40-80); PLATELET COUNT 202 10x3/uL (130-400); RBC 4.91 10x6/uL (4.00-5.40); RDW 14.9 % (11.5-14.5); WBC 11.9 10x3/uL (4.8-10.8)
[2020-04-22 12:40] LABS: CALC OSMOLALITY 277 mosm/kg (275-300); CALCIUM 9.3 mg/dL (8.5-10.1); CARBON DIOXIDE 32.3 mmol/L (21.0-32.0); CHLORIDE - SERUM 104 mmol/L (98-107); CREATININE - SERUM 0.8 mg/dL (0.6-1.3); GLUCOSE 100 mg/dL (74-106); POTASSIUM - SERUM 3.6 mmol/L (3.5-5.1); SODIUM 139 mmol/L (136-145); UREA NITROGEN 12 mg/dL (7-18); eGFR NON AFRICAN AMERICAN 76 mL/min (90-120)
[2020-04-25 10:44] VITALS: BP 195/81; BMI 38.7
[2020-04-25] MEDS ORDERED: PROBIOTIC BLEN1 EACH (10:51)
--- NOTE | 2020-04-25 15:48 | NUR ---
PATIENT STATES 6/10 PAIN. DROWSY. GAVE0.5 MG OF DILAUDED. PUT 2 L NC. PATIENT DESATS WHEN SLEEPING. PATIENT RESTING QUITELY AFTER DILAUDED GIVEN.
--- NOTE | 2020-04-25 16:03 | NUR ---
PATIENT STATES SHE IS IN PAIN BUT DOZES OFF QUICKLY. EXPLAINED TO FLOOR NURSE SHE DOES RESPOND TO VERBAL AND TACTILE STIMULI. 3L NC.
[2020-04-25 16:20] VITALS: BP 103/73
[2020-04-25 16:39] VITALS: BP 103/73; BMI 38.5
[2020-04-25 20:00] VITALS: BP 121/69
--- NOTE | 2020-04-25 20:00 | NUR ---
PATIENT RESTING IN BED WITH EYES OPEN. NO S/S OF ACUTE DISTRESS. NO C/O AT THIS TIME. PATIENT IS ON 2L OF O2 NASAL CANNULA. PATIENT HAS RIGHT HAND IV, NORMAL SALINE @ 125 ML/HR. IV IS PATENT WITHOUT REDNESS, SWELLING, OR TENDERNESS. PATIENT HAS A MIDLINE INCISION, AND TWO LAP SITES ON RIGHT SIDE. DRESSINGS ARE C/D/I. PATIENT HAS A ZHANG. PATIENT USES BEDPAN. CALL LIGHT WITHIN REACH. WILL CONTINUE TO MONITOR.
[2020-04-26] VITALS: BP 132/71
--- NOTE | 2020-04-26 03:22 | NUR ---
I have reviewed this patient and I concur with the Shift Assessment completed by the Licensed Practical Nurse today this shift.
[2020-04-26 04:00] VITALS: BP 147/68
[2020-04-26 05:50] LABS: BASOPHILS 0.1 % (0-2); EOSINOPHILS 0 % (0-7); HEMATOCRIT 40.5 % (36.0-48.0); IMMATURE GRANULOCYTES 0.3 % (0-5); LYMPHOCYTES 5.6 % (15-50); MCH 29.3 pg (26.0-34.0); MCHC 32.1 g/dL (31.0-37.0); MCV 91.4 fL (80.0-100.0); MEAN PLATELET VOLUME 12.5 fL (7.4-10.4); MONOCYTES 6.4 % (2-11); NEUTROPHILS 87.6 % (40-80); RBC 4.43 10x6/uL (4.00-5.40)
[2020-04-26 05:54] LABS: CALC OSMOLALITY 278 mosm/kg (275-300); CALCIUM 8.2 mg/dL (8.5-10.1); CARBON DIOXIDE 25.1 mmol/L (21.0-32.0); CHLORIDE - SERUM 107 mmol/L (98-107); CREATININE - SERUM 0.8 mg/dL (0.6-1.3); GLUCOSE 117 mg/dL (74-106); POTASSIUM - SERUM 3.8 mmol/L (3.5-5.1); SODIUM 140 mmol/L (136-145); UREA NITROGEN 10 mg/dL (7-18); eGFR NON AFRICAN AMERICAN 76 mL/min (90-120)
[2020-04-26 05:56] LABS: PLATELET COUNT 96 10x3/uL (130-400)
[2020-04-26 08:00] VITALS: BP 158/70
--- NOTE | 2020-04-26 08:00 | NUR ---
ASSESSMENT PER FLOW SHEET. PATIENT IS WITHOUT DISTRESS.CALL LIGHT IN REACH
[2020-04-26 12:00] VITALS: BP 138/55
--- NOTE | 2020-04-26 12:00 | NUR ---
ZHANG DCD ORDERED WITH 450 CC OF TREMAINE URINE IN BAG.
[2020-04-26 13:32] VITALS: BMI 38.4
[2020-04-26 16:59] VITALS: BP 141/69
--- NOTE | 2020-04-26 18:25 | NUR ---
HAS VOIDED 150CC OF URINE IN BSC. HAS AMBULATED IN HALLS TWICE TODAY. TOLERATING ICE CHIPS WITH SMALL SIPS OF WATER.
--- NOTE | 2020-04-26 20:00 | NUR ---
PATIENT RESTING IN BED WITH EYES OPEN. NO S/S OF ACUTE DISTRESS. NO C/O AT THIS TIME. PATIENT HAS A RIGHT HAND IV, NORMAL SALINE @ 125 ML/HR AND A DILAUDID MUSSEL FARMER. IV IS PATIENT WITHOUT REDNESS, SWELLING, OR TENDERNESS. PATIENT HAS A MIDLINE INCISION AND X2 LAP SITES ON THE RIGHT SIDE. ALL DRESSINGS C/D/I. UP TO BEDSIDE COMMODE WITH ASSIST. CALL LIGHT WITHIN REACH. WILL CONTINUE TO MONITOR.
[2020-04-27] VITALS (7 sets, daily range): BP systolic 169–207; BP diastolic 75–88
[2020-04-27 06:57] LABS: BASOPHILS 0.2 % (0-2); EOSINOPHILS 1.1 % (0-7); HEMATOCRIT 37.2 % (36.0-48.0); HEMOGLOBIN 11.9 g/dL (12-16); IMMATURE GRANULOCYTES 0.5 % (0-5); LYMPHOCYTES 18.2 % (15-50); MCH 29.5 pg (26.0-34.0); MCV 92.3 fL (80.0-100.0); MEAN PLATELET VOLUME 11.8 fL (7.4-10.4); MONOCYTES 9.6 % (2-11); NEUTROPHILS 70.4 % (40-80); PLATELET COUNT 174 10x3/uL (130-400); RBC 4.03 10x6/uL (4.00-5.40); RDW 15.1 % (11.5-14.5); WBC 13.2 10x3/uL (4.8-10.8)
[2020-04-27 07:16] LABS: CALC OSMOLALITY 277 mosm/kg (275-300); CALCIUM 8.4 mg/dL (8.5-10.1); CHLORIDE - SERUM 109 mmol/L (98-107); CREATININE - SERUM 0.7 mg/dL (0.6-1.3); GLUCOSE 73 mg/dL (74-106); POTASSIUM - SERUM 3.7 mmol/L (3.5-5.1); SODIUM 141 mmol/L (136-145); eGFR NON AFRICAN AMERICAN 89 mL/min (90-120)
[2020-04-27 07:18] LABS: UREA NITROGEN 7 mg/dL (7-18)
--- NOTE | 2020-04-27 09:09 | NUR ---
PT ALERT AND ORIENTED UPON ENTERING. RESTING COMFORTABLY IN BED, COMPLAINS OF MINOR ITCHING FROM ADHESIVE, OFFERED BENADRYL. PT REQUESTED TO HAVE IT IN ABOUT AN HOUR, WILL PROVIDE AT THAT TIME. ADMINISTERED ALL MORNING MEDICATIONS IV, TOLERATED WELL. DENIES ANY NEEDS. BED IN LOWEST POSITION, BED RAILS X2, CALL LIGHT WITHIN REACH. WILL CONTINUE TO MONITOR.
--- NOTE | 2020-04-27 10:13 | NUR ---
ADMINISTERED PRN BENADRYL FOR ITCHING, TOLERATING WELL. DENIES ANY NEEDS. RESTING COMFORTABLY. WILL CONTINUE TO MONITOR.
--- NOTE | 2020-04-27 17:20 | NUR ---
PLACED NEW HELPER/DRIVER DILAUDID SYRINGE IN PUMP. PT RESTING COMFORTABLY. DENIES ANY NEEDS. WILL CONTINUE TO MONITOR.
--- NOTE | 2020-04-27 18:45 | NUR ---
I have reviewed this patient and I concur with the Shift Assessment completed by the Licensed Practical Nurse today this shift.
--- NOTE | 2020-04-27 19:50 | NUR ---
PATIENT RESTING IN BED WITH NO S/S OF DISTRESS. IV TO PATIENT'S RIGHT HAND LEAKING. PATIENT REQUESTED THAT I CALL DR. DYER TO SEE IF SHE CAN BE SWITCHED TO ORAL PAIN MEDICATION BECAUSE SHE MAY BE DISCHARGED TOMORROW. PATIENT DENIES OTHER NEEDS.
--- NOTE | 2020-04-27 19:56 | NUR ---
SPOKE WITH DR. DYER PER PATIENT REQUEST. DR. DYER SWITCHED PATIENT'S MEDICATIONS TO PO AND STARTED HER ON PO PAIN MANAGEMENT.
[2020-04-28 01:05] VITALS: BP 119/74
[2020-04-28 05:11] VITALS: BP 184/78
[2020-04-28 05:57] LABS: BASOPHILS 0.4 % (0-2); EOSINOPHILS 2.6 % (0-7); HEMATOCRIT 37.7 % (36.0-48.0); HEMOGLOBIN 12.1 g/dL (12-16); IMMATURE GRANULOCYTES 0.5 % (0-5); LYMPHOCYTES 21.4 % (15-50); MCH 29.4 pg (26.0-34.0); MCHC 32.1 g/dL (31.0-37.0); MCV 91.5 fL (80.0-100.0); MEAN PLATELET VOLUME 11.6 fL (7.4-10.4); MONOCYTES 10.8 % (2-11); NEUTROPHILS 64.3 % (40-80); PLATELET COUNT 173 10x3/uL (130-400); RBC 4.12 10x6/uL (4.00-5.40)
[2020-04-28 06:06] LABS: WBC 8.5 10x3/uL (4.8-10.8)
[2020-04-28 06:08] LABS: CALC OSMOLALITY 277 mosm/kg (275-300); CALCIUM 8.4 mg/dL (8.5-10.1); CARBON DIOXIDE 29.1 mmol/L (21.0-32.0); CHLORIDE - SERUM 107 mmol/L (98-107); CREATININE - SERUM 0.8 mg/dL (0.6-1.3); GLUCOSE 91 mg/dL (74-106); POTASSIUM - SERUM 3.7 mmol/L (3.5-5.1); SODIUM 141 mmol/L (136-145); eGFR NON AFRICAN AMERICAN 76 mL/min (90-120)
[2020-04-28 06:11] LABS: UREA NITROGEN 5 mg/dL (7-18)
[2020-04-28 08:00] VITALS: BP 153/76
--- NOTE | 2020-04-28 09:30 | NUR ---
WALKED AROUND FLOOR. C/O PAIN 01/25. GAVE PRN PAIN MEDICATION WHEN SHE RETURNED TO ROOM. CALLED PHARMACY TO REQUEST NOSE SPRAY. PT IS NOW SITTING IN CHAIR CONVERSING WITH STAFF. NO ACUTE DISTRESS NOTED. CALL LIGHT WITHIN REACH. NEEDS ANTICIPATED AND MET. WILL CONTINUE TO MONITOR
[2020-04-28 12:00] VITALS: BP 159/79
[2020-04-28 16:43] VITALS: BP 171/66
[2020-04-28 18:36] VITALS: Ht 162.6 cm; Wt 101.6 kg
--- NOTE | 2020-04-28 19:03 | NUR ---
PATIENT RESTING IN BED WITH NO S/S OF DISTRESS. PATIENT HAS REDNESS TO LOWER LAP SITE. NO DRAINAGE OR SWELLING NOTED. PATIENT DENIES NEEDS AT THIS TIME. BED IN LOWEST POSITION AND CALL LIGHT WITHIN REACH. ENCOURAGED THE PATIENT TO CALL IF SHE HAS NEEDS. WILL CONTINUE TO MONITOR.
--- NOTE | 2020-04-28 20:38 | NUR ---
ADMINISTERED MEDS PER ORDERS. PATIENT DENIES OTHER NEEDS. WILL CONTINUE TO MONITOR.
[2020-04-28 20:42] VITALS: BP 131/77
[2020-04-29 01:24] VITALS: BP 153/55
[2020-04-29 06:23] VITALS: BP 155/48
[2020-04-29 06:26] LABS: BASOPHILS 0.3 % (0-2); EOSINOPHILS 3.1 % (0-7); HEMATOCRIT 36.4 % (36.0-48.0); HEMOGLOBIN 11.7 g/dL (12-16); IMMATURE GRANULOCYTES 0.4 % (0-5); LYMPHOCYTES 24.3 % (15-50); MCHC 32.1 g/dL (31.0-37.0); MCV 90.1 fL (80.0-100.0); MEAN PLATELET VOLUME 11.7 fL (7.4-10.4); MONOCYTES 8.2 % (2-11); NEUTROPHILS 63.7 % (40-80); PLATELET COUNT 172 10x3/uL (130-400); RBC 4.04 10x6/uL (4.00-5.40); RDW 14.5 % (11.5-14.5); WBC 7.6 10x3/uL (4.8-10.8)
[2020-04-29 07:03] LABS: CALC OSMOLALITY 279 mosm/kg (275-300); CALCIUM 8.5 mg/dL (8.5-10.1); CARBON DIOXIDE 29.4 mmol/L (21.0-32.0); CHLORIDE - SERUM 108 mmol/L (98-107); CREATININE - SERUM 0.7 mg/dL (0.6-1.3); GLUCOSE 97 mg/dL (74-106); POTASSIUM - SERUM 3.6 mmol/L (3.5-5.1); SODIUM 142 mmol/L (136-145); UREA NITROGEN 4 mg/dL (7-18); eGFR NON AFRICAN AMERICAN 89 mL/min (90-120)
[2020-04-29 08:00] VITALS: BP 159/73
[2020-04-29] MEDS ORDERED: HYDROCODON-ACE1 EAC7 PO (09:10)
--- NOTE | 2020-04-29 10:51 | MORECARE ---
CASE MANAGEMENT DISCHARGE SUMMARY PATIENT: EDISON BRO UNIT: [id number] ADM DATE: 04/25/20 AGE: 64 : 53 SEX: F ROOM/BED: D.[facility]5 AUTHOR: HERVE COLON PHYSICIAN: REFERRING PHYSICIAN: BRINA BROWN MD DATE OF SERVICE: 04/29/20 Discharge Plan Patient Name: EDISON BRO Facility: [facility]:[place] : 1955 Planned Disposition: Home Anticipated Discharge Date: Discharge Date: Expected LOS: Initial Reviewer: [email or web address] Initial Review Date: 04/25/2020 Generated: 04/29/20 11:51 am Patient Name: EDISON BRO Page [id number] at 1051 All edits/amendments must be made on the electronic document DICTATION DATE: 04/29/20 105 ROOFING SALES REPRESENTATIVE: RICARDO 04/29/20 1051 RPT#: [id number] DC DATE: STATUS: ADM IN [facility] [address] [place] [address] END OF REPORT
--- NOTE | 2020-04-29 11:00 | MORECARE ---
CASE MANAGEMENT DISCHARGE SUMMARY PATIENT: EDISON BRO UNIT: [id number] ADM DATE: 04/25/20 AGE: 64 : 53 SEX: F ROOM/BED: D.2235 AUTHOR: HERVE COLON PHYSICIAN: REFERRING PHYSICIAN: BRINA BROWN MD DATE OF SERVICE: 04/29/20 Discharge Plan Patient Name: EDISON BRO Facility: [facility]:[place] : 1955 Planned Disposition: Home Anticipated Discharge Date: Discharge Date: Expected LOS: Initial Reviewer: [email or web address] Initial Review Date: 04/25/2020 Generated: 04/29/20 11:59 am Comments DCP- Discharge Planning Updated by [email or web address]: Jackie Duarte on 04/29/20 9:[address] Patient Name: EDISON BRO Admission Status: Urgent Accout number: [id number] Admission Date: 04-25-2020 : 1955 Admission Diagnosis: Attending: BRINA BROWN Current LOS: 4 Anticipated DC Date: Planned Disposition: Home Primary Insurance: MEDICARE A & B Discharge Planning Comments: CM met with patient at bedside after explaining CM role and obtaining verbal consent. CM discussed availability / needs of home health, REHAB and medical equipment. PATIENT DENIES ANY DISCHARGE NEEDS. AT BEDSIDE AND PLANS TO DC TO HOME THIS MORNING. IMM SIGNED AND COPY PLACED ON CHART. Cancer Registry Manager: Jackie Duarte Last DP export: 04/29/20 9:51 Patient Name: EDISON BRO Page [phone] at 1100 All edits/amendments must be made on the electronic document DICTATION DATE: 04/29/20 105 LOAN FUNDER: RICARDO 04/29/20 105 RPT#: [id number] DC DATE: STATUS: ADM IN [facility] [address] [place] [address] END OF REPORT
--- NOTE | 2020-04-29 14:09 | OP ---
PATIENT NAME: EDISON BRO MEDICAL RECORD: [id number] :51 LOCATION:D.MS [id number] ADMISSION DATE:04/25/20 SURGEON: CORBIN BROWN MD DATE OF OPERATION: 04/25/2020 PREOPERATIVE DIAGNOSES: 1. Crohn's disease. 2. Stenosis of coloenteric anastomosis. 3. Hypertension. 4. Hypothyroidism. POSTOPERATIVE DIAGNOSES: 1. Crohn's disease. 2. Stenosis of coloenteric anastomosis. 3. Hypertension. 4. Hypothyroidism. PROCEDURE: Hand-assisted laparoscopic revision of coloenteric anastomosis with small bowel resection. SURGEON: Corbin Brown MD REPORT OF PROCEDURE: The patient's abdomen was prepped and draped in sterile fashion. A skin incision was made in the upper midline just above the umbilicus and electrocautery was used to dissect through the subcutaneous tissues and fascia. We entered the abdominal cavity. Once inside, the GelPort was inserted with a 5-mm trocar within it. A 5-mm trocar was placed in the left lateral upper quadrant and another was placed in the left lower quadrant. The patient had some adhesions of the small bowel to the anterior abdominal wall and using tedious dissection with blunt dissection and Metzenbaum scissors, we were able to take down these adhesions of the small bowel. We eventually were able to get all these adhesions free to where we can manipulate the tissues, but we did not take down every adhesion that was present. At this point, we were able to eviscerate the distal small bowel as it entered coloenteric anastomosis. This distal small bowel was grossly inflamed and swollen consistent with the patient's known history of Crohn's disease. About 10 cm proximally, this appeared to be normal with no signs of gross inflammation. A window was made in the mesentery of the small bowel and a 45 blue load SALONI stapler was used to transect this bowel. The mesentery was then taken down with sequential clamp and tie technique all the way up to the coloenteric anastomosis, which was an end-to-side anastomosis to the mid transverse colon. We were able to dissect the distal transverse colon free and made another window in the mesentery of the transverse colon just distal to this anastomosis. A 75 blue load SALONI stapler was used to transect this bowel. The mesentery was taken down of the transverse colon and at this point, the piece of bowel was sent off for permanent specimen. A keck-fg-xeah anastomosis was performed of the small bowel to the transverse colon with the enterotomies made using electrocautery and then a 75 blue load SALONI stapler was used to perform the anastomosis. We closed off the enterotomies with a 30 blue load TA stapler and then oversewed the staple lines with Lemberted 3-0 silks. There was good approximation of the tissue with no signs of any active bleeding and there was a good open patent anastomotic opening. We then irrigated out the abdomen thoroughly with normal saline and assured there was no sign of any bleeding. There was some bleeding previously at the base of the mesentery, which was oversewn with a 3-0 silk tie to discontinue any bleeding. We did not see any evidence of any other acute problems in the OPERATIVE REPORT [id number] EDISON BRO patient's abdominal cavity. At this point, the ports and insufflation were then removed and the wound protector was taken out. The midline fascia was closed with running #1 loop PDS times 2. The subcutaneous tissues were irrigated out and then reapproximated with interrupted 3-0 Vicryl. A 10 mL of 0.25% Marcaine with epinephrine was infused into the surrounding tissues and the wounds were closed with majo. COMPLICATIONS: None. CONDITION: Stable. ANESTHESIA: General endotracheal and local. BLOOD LOSS: 100 mL. TRANSINT:[id number] Voice Confirmation ID: [id number] DOCUMENT ID: [id number] cc: CORBIN Aden MD at 1409 CC: TIRSO DIXON MD [id number] DICTATION DATE: 04/25/20 1540 SENIOR ORACLE APPLICATIONS DEVELOPER: 04/25/20 2300 DIS IN 04/29/[address] [id number] [place] [id number]
--- NOTE | 2020-04-29 14:55 | NUR ---
AT 1100 THIS MORNING: REVIEWED DISCHARGE INFO AND EDUCATION WITH PATIENT AND . RECEIVED INFO WELL. NO DISTRESS NOTED. TRANSPORTED TO EXIT VIA . TOLERATED WELL. DRIVING HOME IN PERSONAL VEHICLE
--- NOTE | 2020-04-30 08:59 | MORECARE ---
CASE MANAGEMENT DISCHARGE SUMMARY PATIENT: EDISON BRO UNIT: [id number] ADM DATE: 04/25/20 AGE: 64 : 53 SEX: F ROOM/BED: D.2235 AUTHOR: HERVE COLON PHYSICIAN: REFERRING PHYSICIAN: BRINA BROWN MD DATE OF SERVICE: 04/30/20 Discharge Plan Patient Name: EDISON BRO Facility: [facility]:[place] : 1955 Planned Disposition: Home Anticipated Discharge Date: Discharge Date: 04/29/2020 Expected LOS: Initial Reviewer: [email or web address] Initial Review Date: 04/25/2020 Generated: 04/30/20 9:59 am Comments DCP- Discharge Planning Updated by [email or web address]: Jackie Duarte on 04/29/20 9:[address] Patient Name: EDISON BRO Admission Status: Urgent Accout number: [id number] Admission Date: 04-25-2020 : 1955 Admission Diagnosis: Attending: BRINA BROWN Current LOS: 4 Anticipated DC Date: Planned Disposition: Home Primary Insurance: MEDICARE A & B Discharge Planning Comments: CM met with patient at bedside after explaining CM role and obtaining verbal consent. CM discussed availability / needs of home health, REHAB and medical equipment. PATIENT DENIES ANY DISCHARGE NEEDS. AT BEDSIDE AND PLANS TO DC TO HOME THIS MORNING. IMM SIGNED AND COPY PLACED ON CHART. Rock Crushing Machine Operator: Jackie Duarte Coverage Notice Reviewer: [id number] - Jackie Duarte Notice Issued Date-Time: 04/29/2020 11:54 Notice Type: IM Discharge Notice Notice Delivered To: Patient Relationship to Patient: Building Serviceman Name: Delivery Method: HAND - Hand Delivered Rose Days: Prior Verbal Notification: Recipient Understood Notice: Yes Recipient Signature: Yes Med Rec Note Co-signed by Attending: Coverage Notice Comment: Last DP export: 04/29/20 10:00 Patient Name: EDISON BRO Page 98599 at 0859 All edits/amendments must be made on the electronic document DICTATION DATE: 04/30/20 0859 SPARE FIXER: RICARDO 04/30/20 0859 RPT#: [id number] DC DATE:04/29/20 STATUS: DIS IN [facility] [address] [place] [address] END OF REPORT
== END 2020-04-29 11:20 | disposition home or self-care (01) | DRG 330 ==
LOC: D.MS 04-25 09:50 → D.SDCHOLD 04-25 11:15 → D.MS 04-29 11:20
PROVIDERS: ADMIT Surgery; ATTEND Surgery
PROC: 0D180ZL Bypass Small Intestine to Transverse Colon, Open Approach (ICD-10-PCS; 2020-04-25)
PROC: 0DT80ZZ Resection of Small Intestine, Open Approach (ICD-10-PCS; principal; 2020-04-25 11:15)
DX: K50.80 Crohn's disease of both small and large intestine without complications (principal); K91.89 Other postprocedural complications and disorders of digestive system; I10 Essential (primary) hypertension; E03.9 Hypothyroidism, unspecified

== ENCOUNTER 2020-09-06 15:42 | Inpatient (IN) | payer MEDICARE, OTHER ==
[~2020-09-06] VITALS: Ht 160 cm; Wt 102.3 kg
[~2020-09-06 15:42] MED LIST changes: +ASCORBIC ACID500 MG PO; +ENTYVIO IV; +IMVEXXY VG; +NYAMYC60 GM TOPICAL; +PENTASA500 MG; +PROBIOTIC BLEN1 EACH PO
[2020-09-06 17:43] LABS: BASOPHILS 0.4 % (0-2); EOSINOPHILS 1.9 % (0-7); HEMATOCRIT 46.4 % (36.0-48.0); HEMOGLOBIN 15.4 g/dL (12-16); IMMATURE GRANULOCYTES 0.3 % (0-5); LYMPHOCYTE ABS# 2.57 10x3/uL (1.18-3.74); MCH 29.1 pg (26.0-34.0); MCHC 33.2 g/dL (31.0-37.0); MCV 87.7 fL (80.0-100.0); NEUTROPHIL ABS# 6.39 10x3/uL (1.56-6.13); NEUTROPHILS 62.4 % (40-80); PLATELET COUNT 195 10x3/uL (130-400); RBC 5.29 10x6/uL (4.00-5.40); WBC 10.3 10x3/uL (4.8-10.8)
[2020-09-06 17:53] LABS: CALC OSMOLALITY 278 mosm/kg (275-300); CALCIUM 9.9 mg/dL (8.5-10.1); CARBON DIOXIDE 30.2 mmol/L (21.0-32.0); CHLORIDE - SERUM 102 mmol/L (98-107); CREATININE - SERUM 0.8 mg/dL (0.6-1.3); GLUCOSE 119 mg/dL (74-106); POTASSIUM - SERUM 4.2 mmol/L (3.5-5.1); SODIUM 140 mmol/L (136-145); UREA NITROGEN 11 mg/dL (7-18); eGFR NON AFRICAN AMERICAN 76 mL/min (90-120)
[2020-09-06 18:01] LABS: ALBUMIN 3.9 g/dL (3.4-5.0); ALKALINE PHOSPHATASE 104 U/L (30-120); ALT (SGPT) 81 U/L (10-68); AMYLASE - SERUM 38 U/L (25-115); BILIRUBIN - TOTAL 0.62 mg/dL (0.2-1.3); LIPASE 92 U/L (73-393); PROTEIN - SERUM 7.6 g/dL (6.4-8.2)
[2020-09-06 18:07] LABS: BILIRUBIN NEGATIVE (NEGATIVE); KETONE NEGATIVE (NEGATIVE); NITRITE NEGATIVE (NEGATIVE); UROBILINOGEN NORMAL mg/dL (< 2)
[2020-09-06 18:08] LABS: TROPONIN-I < 0.017 ng/mL (0.000-0.060)
--- NOTE | 2020-09-06 19:30 | NUR ---
PATIENT RESTING WITH EYES CLOSED WHEN ENTERING THE ROOM. AROUSES WHEN NAME CALLED. PATIENT IS ALERT AND ORIENTED. ABDOMINAL BINDER IN PLACE. MIDLINE INCISION AND LLQ INCISION ADHERED TO SKIN, DRESSING CLEAN, DRY, AND INTACT. PATIENT ASSESSMENT PERFORMED AND COMPLETED. APPLIED SCD'S AND PROVIDED INCENTIVE SPIROMETER, PATIENT PERFORMED RETURN DEMONSTRATION ON PROPER USE OF IS. PATIENT DENIES NEEDS AT THIS TIME. CALL LIGHT IS CLOSE TO PATIENT, DOOR OPEN FOR MONITORING. CPOC.
--- NOTE | 2020-09-06 20:13 | NUR ---
PT LEFT TO CT AT THIS TIME.
[2020-09-06 20:31] VITALS: BP 130/82
[2020-09-06] MEDS ORDERED: ENTYVIO (23:34)
[2020-09-07] VITALS (11 sets, daily range): BP systolic 103–133; BP diastolic 58–80; Ht 160 cm; Wt 102.3 kg
[2020-09-07] MEDS ORDERED: IMVEXXY VG (01:14)
[2020-09-07] MEDS ORDERED: SYNTHROID50 MCG PO (01:15)
[2020-09-07] MEDS ORDERED: LOMOTIL 2.5-0.1 EAC1 PO (01:17)
[2020-09-07] MEDS ORDERED: DOXEPIN HCL75 MG PO (01:22)
--- NOTE | 2020-09-07 08:58 | NUR ---
PT REPORTS HAS A BLADDER STIMULATOR IMPLANTED BUT DOES NOT HAVE THE REMOTE TO SHUT IT OFF WITH HER. SHE SENT IT HOME WITH HER . HE CAN BRING IT BACK IF NEEDED. DR. TUCKER NOTIFIED. PLAN IS TO OPERATE TOMORROW AFTER SPOUSE BRINGS STIMULATOR REMOTE BACK. PT UPDATED ON POC.
--- NOTE | 2020-09-07 09:53 | NUR ---
ASSUMED CARE OF PATIENT. ASSESSMENT COMPLETE WITH NO C/O AT THIS TIME. CALL LIGHT IN REACH.
--- NOTE | 2020-09-07 15:20 | NUR ---
PT WITH NO NEW C/O. AT HER BEDSIDE. SHE WILL GO TO THE OR TODAY AND TO THE FLOOR AFTERWARDS. ALL BELONGINGS WITH THE PATIENT. CONSENTS SIGNED.
--- NOTE | 2020-09-07 18:19 | NUR ---
JUST REC'D TO FLOOR AT THIS TIME TO ROOM 2218. RESP EVEN AND UNLABORED WITH NO DISTRESS NOTED. CAN EXPRESS NEEDS AND WANTS. ABD BINDER INTACT. PARAS NOTIFIED OF PT OUT OF SURGERY AND IN HER ROOM. WILL CONTINUE TO OBSERVE FOR NEEDS. C/L IN REACH AT BEDSIDE.
[2020-09-07 18:43] LABS: BASOPHILS 0.4 % (0-2); EOSINOPHILS 1.7 % (0-7); HEMOGLOBIN 13.6 g/dL (12-16); IMMATURE GRANULOCYTES 0.1 % (0-5); LYMPHOCYTE ABS# 1.62 10x3/uL (1.18-3.74); MCH 28.7 pg (26.0-34.0); MCHC 32.4 g/dL (31.0-37.0); MCV 88.6 fL (80.0-100.0); MEAN PLATELET VOLUME 12.4 fL (7.4-10.4); MONOCYTES 4.3 % (2-11); NEUTROPHILS 72.5 % (40-80); PLATELET COUNT 189 10x3/uL (130-400); RBC 4.74 10x6/uL (4.00-5.40); RDW 15.1 % (11.5-14.5)
[2020-09-07 18:44] LABS: WBC 7.7 10x3/uL (4.8-10.8)
[2020-09-07 18:58] LABS: ALBUMIN 3.4 g/dL (3.4-5.0); ALKALINE PHOSPHATASE 88 U/L (30-120); ALT (SGPT) 79 U/L (10-68); BILIRUBIN - TOTAL 0.75 mg/dL (0.2-1.3); CALCIUM 8.2 mg/dL (8.5-10.1); CARBON DIOXIDE 26.4 mmol/L (21.0-32.0); CHLORIDE - SERUM 105 mmol/L (98-107); CREATININE - SERUM 0.8 mg/dL (0.6-1.3); GLUCOSE 160 mg/dL (74-106); MAGNESIUM - SERUM 1.6 mg/dL (1.8-2.4); POTASSIUM - SERUM 4.1 mmol/L (3.5-5.1); PROTEIN - SERUM 6.3 g/dL (6.4-8.2); SODIUM 142 mmol/L (136-145); eGFR NON AFRICAN AMERICAN 76 mL/min (90-120)
[2020-09-07 19:01] LABS: CALC OSMOLALITY 283 mosm/kg (275-300); UREA NITROGEN 8 mg/dL (7-18)
--- NOTE | 2020-09-07 20:05 | NUR ---
ANSWERED PATIENT CALL LIGHT. REQUESTING ICE CHIPS AND PAIN MEDICATION. PROVIDED ICE AND ADMINISTERED PAIN MEDICATION AND ANTIEMETIC PER ORDER. PATIENT DENIES FURTHER NEEDS AT THIS TIME. CPOC.
--- NOTE | 2020-09-08 00:12 | NUR ---
PATIENT REQUESTING PRN PAIN MEDICATION, ADMINISTERED PER ORDER. CPOC.
[2020-09-08 01:17] VITALS: BP 108/63
--- NOTE | 2020-09-08 04:54 | NUR ---
PATIENT AMBULATES TO BATHROOM WITH ASSISTANCE. RETURNS TO BED SAFELY. REQUESTS PAIN MEDICATION. ADMINISTERED PER ORDER. CPOC.
[2020-09-08 04:56] VITALS: BP 129/48
--- NOTE | 2020-09-08 06:27 | NUR ---
PATIENT HAS NOT VOIDED, BLADDER SCAN SHOWS 324 IN BLADDER. CALLED AND SPOKE WITH DR. GOLDEN, MADE SURGEON AWARE THAT PATIENT HAS NOT VOIDED SINCE SURGERY. NO NEW ORDERS AT THIS TIME. CPOC.
--- NOTE | 2020-09-08 09:00 | NUR ---
ALERT AND ORIENTED WITH INTERMITTANT CONFUSION NOTED. DR. GOLDEN HERE WITH PATINET STATING SHE HAD A BOWEL MOVEMENT TODAY. PATINET LATED STATED SHE HAD HER DAYS CONFUSED AND HAD NOT. O2 3L N/C WITH PATINET O2 85 % W/O O2. DR. GOLDEN NOTIFIED WITH NEW ORDER NOTED. ABDOMINAL DRESSING INTACT WITH BOWEL SOUNDS HYPOACTIVE X4. ABDOMINAL BINDER INTACT. DILAUDID GIVEN PRN ABDOMINAL PAIN. ENCOURAGED TO USE CALL LIGHT FOR ASSIST.
[2020-09-08 10:34] VITALS: BP 119/70
[2020-09-08 11:00] VITALS: BP 128/74
--- NOTE | 2020-09-08 14:16 | MORECARE ---
CASE MANAGEMENT DISCHARGE SUMMARY PATIENT: EDISON BRO UNIT: [id number] ADM DATE: 09/06/20 AGE: 64 : 51 SEX: F ROOM/BED: D.2219 AUTHOR: HERVE COLON PHYSICIAN: REFERRING PHYSICIAN: TIRSO DIXON MD DATE OF SERVICE: 09/08/20 Discharge Plan Patient Name: EDISON BRO Facility: [facility]:[place] : 1955 Planned Disposition: Home Anticipated Discharge Date: 09/08/20 Discharge Date: Expected LOS: 2 Initial Reviewer: [email or web address] Initial Review Date: 09/06/2020 Generated: 09/08/20 3:15 pm Patient Name: EDISON BRO Page [id number] at 1416 All edits/amendments must be made on the electronic document DICTATION DATE: 09/08/20 1416 SHANK SKINNER: RICARDO 09/08/20 1416 RPT#: [id number] DC DATE: STATUS: ADM IN [facility] [address] [place] [address] END OF REPORT
--- NOTE | 2020-09-08 14:24 | MORECARE ---
CASE MANAGEMENT DISCHARGE SUMMARY PATIENT: EDISON ALONZO UNIT: [id number] ADM DATE: 09/06/20 AGE: 64 : 51 SEX: F ROOM/BED: D.2219 AUTHOR: ISAIAH,DOC PHYSICIAN: REFERRING PHYSICIAN: TIRSO DIXON MD DATE OF SERVICE: 09/08/20 Discharge Plan Patient Name: EDISON ALONZO Facility: [facility]:[place] : 1955 Planned Disposition: Home Anticipated Discharge Date: 09/08/20 Discharge Date: Expected LOS: 2 Initial Reviewer: ALLI Initial Review Date: 09/06/2020 Generated: 09/08/20 3:23 pm Comments DCP- Discharge Planning Updated by ALLI: Eugenio Feliciano on 09/08/20 1:[address] CM met with patient to complete DC plan and to evaluate needs. Patient lives independently at home with her , Nahid Alonzo ([phone]). At discharge, the patient plans to return home and feels this is a safe discharge. Patient noted to be dyspneic. O2 sats = 84%. Walk test = 81% on Room air and 95% on 2L. CM discussed availability of home health, rehab services, and medical equipment. Patient declined HHS, SNF, and IPR. Patient stated that "...my will be able to take care of me and my son's a nurse". Patient chose [facility] should she need Oxygen at DC. GARRET signed and placed on chart. Patient voiced no other needs at this time and is satisfied with DC plan. Transportation provider at discharge will be with her , Nahid. DC IMM delivered, explained, signed by the patient, and placed in chart. Signed form also left with the patient. CM will continue to follow and will assist as needed with dc plans/needs. DCPIA - Discharge Planning Initial Assessment Updated by ALLI: Eugenio Feliciano on 09/08/20 2:17 pm * Is the patient Alert and Oriented? Yes * How many steps to enter\\exit or inside your home? 0/0 * PCP ZACK * Pharmacy [facility] * Preadmission Environment Home with Family * ADLs Independent * Equipment Walker * Other Equipment n/a * List name and contact numbers for known caregivers / representatives who currently or will assist patient after discharge: NAHID ALONZO ([facility]) [phone] * Verbal permission to speak to the caregivers and representatives has been obtained from the patient. Yes * Community resources currently utilized None * Please name any agencies selected above. n/a * Additional services required to return to the preadmission environment? Yes * Can the patient safely return to the preadmission environment? Yes * Has this patient been hospitalized within the prior 30 days at any hospital? No Coverage Notice Reviewer: [id number] Feliciano Notice Issued Date-Time: 09/08/2020 14:17 Notice Type: IM Discharge Notice Notice Delivered To: Patient Relationship to Patient: Self Ap Operator Name: Delivery Method: HAND - Hand Delivered Rose Days: Prior Verbal Notification: Recipient Understood Notice: Yes Recipient Signature: Yes Med Rec Note Co-signed by Attending: Coverage Notice Comment: DC IMM delivered, explained, signed by the patient, and placed in chart. Signed form also left with the patient Reviewer: [id number] Feliciano Notice Issued Date-Time: 09/08/2020 14:17 Notice Type: Patient Choice Letter Notice Delivered To: Patient Relationship to Patient: Self Ap Operator Name: Delivery Method: HAND - Hand Delivered Rose Days: Prior Verbal Notification: Recipient Understood Notice: Yes Recipient Signature: Yes Med Rec Note Co-signed by Attending: Coverage Notice Comment: PERI Mcleod DP export: 09/08/20 1:16 p Patient Name: EDISON ALONZO Page 11706 at 1424 All edits/amendments must be made on the electronic document DICTATION DATE: 09/08/20 1423 BACK SEAM STITCHER: RICARDO 09/08/20 142 RPT#: [id number] DC DATE: STATUS: ADM IN [facility] [address] [place] [address] END OF REPORT
--- NOTE | 2020-09-08 15:00 | NUR ---
DR. CLARKE HERE WITH NEW ORDERS NOTED.
[2020-09-08 16:00] VITALS: BP 129/62
--- NOTE | 2020-09-08 19:05 | NUR ---
PATIENT ALERT AND ORIENTED AT THIS TIME. DENIES NEEDS. ASSESSMENT PERFORMED. SEE CHART. WAS TOLD IN REPORT ABDOMINAL BINDER WAS REMOVED AND WHEN ATTEMPTED TO REAPPLY, TOO PAINFUL AND DID NOT FIT PATIENT CORRECTLY. REQUEST FOR ANOTHER BINDER FROM [employer] TO EXTEND IN SIZE AND PROVIDE SUPPORT WITHOUT PAIN.
[2020-09-08 20:00] VITALS: BP 120/53
--- NOTE | 2020-09-08 20:56 | NUR ---
REQUESTING PRN PAIN MEDICATIONS. ADMINISTERED PER ORDER. TOLERATED WITH NO ISSUES. CPOC.
--- NOTE | 2020-09-08 21:10 | NUR ---
SPOKE WITH BUILDING CONSTRUCTION TEACHER ABOUT OBTAINING LARGER ABDOMINAL BINDER, HS STATES IT COULD BE TOMORROW. REASSESSED BINDER AND PATIENT. EDUCATED PATIENT THAT BINDER SHOULD BE SNUG AND TIGHT TO AID IN PROTECTION AND SUPPORT. HAD PATIENT LAY FLAT AND ANOTHER PIGS FEET FINISHER TO PUT ON BINDER CORRECTLY. PATIENT TOLERATING BINDER AT THIS TIME. CPOC
--- NOTE | 2020-09-09 01:29 | NUR ---
ASSISTED TO BATHROOM. VOIDED X 1. RETURNED TO BED SAFELY. ABDOMINAL BINDER REMAINS IN PLACE. PATIENT REQUESTS PRN PAIN MEDICATION. ADMINISTERED PER ORDER. CALL LIGHT CLOSE. CPOC.
[2020-09-09 04:00] VITALS: BP 127/70
[2020-09-09 07:22] LABS: BASOPHILS 0.2 % (0-2); EOSINOPHILS 2.5 % (0-7); IMMATURE GRANULOCYTES 0.2 % (0-5); LYMPHOCYTES 12.3 % (15-50); MCH 28.6 pg (26.0-34.0); MCHC 31.6 g/dL (31.0-37.0); MONOCYTES 8.7 % (2-11); NEUTROPHILS 76.1 % (40-80); PLATELET COUNT 188 10x3/uL (130-400); RBC 4.19 10x6/uL (4.00-5.40); RDW 15.7 % (11.5-14.5)
[2020-09-09 07:27] LABS: ALBUMIN 2.9 g/dL (3.4-5.0); ANION GAP 11.5 mmol/L (8-16); BILIRUBIN - TOTAL 0.43 mg/dL (0.2-1.3); CALCIUM 8.6 mg/dL (8.5-10.1); CARBON DIOXIDE 25.5 mmol/L (21.0-32.0); PROTEIN - SERUM 6.1 g/dL (6.4-8.2)
[2020-09-09 07:28] LABS: CREATININE - SERUM 1.2 mg/dL (0.6-1.3)
[2020-09-09 07:43] LABS: MCV 90.7 fL (80.0-100.0); WBC 12.2 10x3/uL (4.8-10.8)
[2020-09-09 08:25] VITALS: BP 131/65
--- NOTE | 2020-09-09 12:12 | MORECARE ---
CASE MANAGEMENT DISCHARGE SUMMARY PATIENT: EDISON ALONZO UNIT: [id number] ADM DATE: 09/06/20 AGE: 64 : 51 SEX: F ROOM/BED: D.2219 AUTHOR: ISAIAH,DOC PHYSICIAN: REFERRING PHYSICIAN: TIRSO DIXON MD DATE OF SERVICE: 09/09/20 Discharge Plan Patient Name: EDISON ALONZO Facility: [facility]:[place] : 1955 Planned Disposition: Home Anticipated Discharge Date: 09/08/20 Discharge Date: Expected LOS: 2 Initial Reviewer: [id number] Initial Review Date: 09/06/2020 Generated: 09/09/20 1:11 pm Comments DCP- Discharge Planning Updated by [email or web address]: Molly Stanley on 09/09/20 11:[address] I HAVE SENT CLINICALS TO [facility] FOR THE PATIENT TO HAVE HOME O2, I DO NOT SEE A DX FOR HOME O2. WILL WAIT TO SEE WHAT [facility] STATES DCP- Discharge Planning Updated by [id number]: Eugenio Feliciano on 09/08/20 1:[address] CM met with patient to complete DC plan and to evaluate needs. Patient lives independently at home with her , Nahid Alonzo ([phone]). At discharge, the patient plans to return home and feels this is a safe discharge. Patient noted to be dyspneic. O2 sats = 84%. Walk test = 81% on Room air and 95% on 2L. CM discussed availability of home health, rehab services, and medical equipment. Patient declined HHS, SNF, and IPR. Patient stated that "...my will be able to take care of me and my son's a nurse". Patient chose [facility] should she need Oxygen at DC. GARRET signed and placed on chart. Patient voiced no other needs at this time and is satisfied with DC plan. Transportation provider at discharge will be with her , Nahid. DC IMM delivered, explained, signed by the patient, and placed in chart. Signed form also left with the patient. CM will continue to follow and will assist as needed with dc plans/needs. DCPIA - Discharge Planning Initial Assessment Updated by [id number]: Eugenio Feliciano on 09/08/20 2:17 pm * Is the patient Alert and Oriented? Yes * How many steps to enter\\exit or inside your home? 0/0 * PCP ZACK * Pharmacy [facility] * Preadmission Environment Home with Family * ADLs Independent * Equipment Walker * Other Equipment n/a * List name and contact numbers for known caregivers / representatives who currently or will assist patient after discharge: NAHID MCMANUSLashaSHAHRIAR ([facility]) [phone] * Verbal permission to speak to the caregivers and representatives has been obtained from the patient. Yes * Community resources currently utilized None * Please name any agencies selected above. n/a * Additional services required to return to the preadmission environment? Yes * Can the patient safely return to the preadmission environment? Yes * Has this patient been hospitalized within the prior 30 days at any hospital? No External Providers External Provider: Mahesh Malhotra Contact Date: Service Request Date: Service Type: Resolution: Reviewer: Comments: Coverage Notice Reviewer: ALLI Feliciano Notice Issued Date-Time: 09/08/2020 14:17 Notice Type: IM Discharge Notice Notice Delivered To: Patient Relationship to Patient: Self Artificial Limb Maker Name: Delivery Method: HAND - Hand Delivered Rose Days: Prior Verbal Notification: Recipient Understood Notice: Yes Recipient Signature: Yes Med Rec Note Co-signed by Attending: Coverage Notice Comment: DC IMM delivered, explained, signed by the patient, and placed in chart. Signed form also left with the patient Reviewer: ALLI Feliciano Notice Issued Date-Time: 09/08/2020 14:17 Notice Type: Patient Choice Letter Notice Delivered To: Patient Relationship to Patient: Self Artificial Limb Maker Name: Delivery Method: HAND - Hand Delivered Rose Days: Prior Verbal Notification: Recipient Understood Notice: Yes Recipient Signature: Yes Med Rec Note Co-signed by Attending: Coverage Notice Comment: PERI Mcleod DP export: 09/08/20 1:24 p Patient Name: EDISON ALONZO Page [id number] at 1212 All edits/amendments must be made on the electronic document DICTATION DATE: 09/09/20 1212 TOWER ATTENDANT: RICARDO 09/09/20 1212 RPT#: [id number] DC DATE: STATUS: ADM IN [facility] [address] [place] [address] END OF REPORT
[2020-09-09 12:29] VITALS: BP 125/59
--- NOTE | 2020-09-09 13:23 | MORECARE ---
CASE MANAGEMENT DISCHARGE SUMMARY PATIENT: EDISON ALONZO UNIT: [id number] ADM DATE: 09/06/20 AGE: 64 : 51 SEX: F ROOM/BED: D.2219 AUTHOR: ISAIAH,DOC PHYSICIAN: REFERRING PHYSICIAN: TIRSO DIXON MD DATE OF SERVICE: 09/09/20 Discharge Plan Patient Name: EDISON ALONZO Facility: [facility]:[place] : 1955 Planned Disposition: Home Anticipated Discharge Date: 09/08/20 Discharge Date: Expected LOS: 2 Initial Reviewer: [email or web address] Initial Review Date: 09/06/2020 Generated: 09/09/20 2:22 pm Comments DCP- Discharge Planning Updated by [email or web address]: Molly Stanley on 09/09/20 12:[address] YOMI WITH [facility] WILL BE DELIVERING PORTABLE O2 TO PATIENT AND WILL SET UP HOME O2 WHEN SHE GETS HOME DCP- Discharge Planning Updated by [email or web address]: Molly Stanley on 09/09/20 11:[address] I HAVE SENT CLINICALS TO [facility] FOR THE PATIENT TO HAVE HOME O2, I DO NOT SEE A DX FOR HOME O2. WILL WAIT TO SEE WHAT [facility] STATES DCP- Discharge Planning Updated by [id number]: Eugenio Feliciano on 09/08/20 1:[address] CM met with patient to complete DC plan and to evaluate needs. Patient lives independently at home with her , Nahid Alonzo ([phone]). At discharge, the patient plans to return home and feels this is a safe discharge. Patient noted to be dyspneic. O2 sats = 84%. Walk test = 81% on Room air and 95% on 2L. CM discussed availability of home health, rehab services, and medical equipment. Patient declined HHS, SNF, and IPR. Patient stated that "...my will be able to take care of me and my son's a nurse". Patient chose [facility] should she need Oxygen at DC. GARRET signed and placed on chart. Patient voiced no other needs at this time and is satisfied with DC plan. Transportation provider at discharge will be with her , Nahid. DC IMM delivered, explained, signed by the patient, and placed in chart. Signed form also left with the patient. CM will continue to follow and will assist as needed with dc plans/needs. DCPIA - Discharge Planning Initial Assessment Updated by ALLI: Eugenio Feliciano on 09/08/20 2:17 pm * Is the patient Alert and Oriented? Yes * How many steps to enter\\exit or inside your home? 0/0 * PCP HURST * Pharmacy [facility] * Preadmission Environment Home with Family * ADLs Independent * Equipment Walker * Other Equipment n/a * List name and contact numbers for known caregivers / representatives who currently or will assist patient after discharge: NAHID ALONZO ([facility]) [phone] * Verbal permission to speak to the caregivers and representatives has been obtained from the patient. Yes * Community resources currently utilized None * Please name any agencies selected above. n/a * Additional services required to return to the preadmission environment? Yes * Can the patient safely return to the preadmission environment? Yes * Has this patient been hospitalized within the prior 30 days at any hospital? No Coverage Notice Reviewer: ALLI Feliciano Notice Issued Date-Time: 09/08/2020 14:17 Notice Type: IM Discharge Notice Notice Delivered To: Patient Relationship to Patient: Self General Manager In Training Name: Delivery Method: HAND - Hand Delivered Rose Days: Prior Verbal Notification: Recipient Understood Notice: Yes Recipient Signature: Yes Med Rec Note Co-signed by Attending: Coverage Notice Comment: DC IMM delivered, explained, signed by the patient, and placed in chart. Signed form also left with the patient Reviewer: ALLI Feliciano Notice Issued Date-Time: 09/08/2020 14:17 Notice Type: Patient Choice Letter Notice Delivered To: Patient Relationship to Patient: Self General Manager In Training Name: Delivery Method: HAND - Hand Delivered Rose Days: Prior Verbal Notification: Recipient Understood Notice: Yes Recipient Signature: Yes Med Rec Note Co-signed by Attending: Coverage Notice Comment: PERI GUZMAN export: 09/09/20 11:12 a Patient Name: EDISON ALONZO Page [id number] at 1323 All edits/amendments must be made on the electronic document DICTATION DATE: 09/09/20 1323 BAND EDGER: RICARDO 09/09/20 1323 RPT#: [id number] DC DATE: STATUS: ADM IN [facility] [address] [place] [address] END OF REPORT
--- NOTE | 2020-09-09 13:48 | MORECARE ---
CASE MANAGEMENT DISCHARGE SUMMARY PATIENT: EDISON ALONZO UNIT: [id number] ADM DATE: 09/06/20 AGE: 64 : 51 SEX: F ROOM/BED: D.2219 AUTHOR: ISAIAH,DOC PHYSICIAN: REFERRING PHYSICIAN: TIRSO DIXON MD DATE OF SERVICE: 09/09/20 Discharge Plan Patient Name: EDISON ALONZO Facility: [facility]:[place] : 1955 Planned Disposition: Home Anticipated Discharge Date: 09/08/20 Discharge Date: Expected LOS: 2 Initial Reviewer: [email or web address] Initial Review Date: 09/06/2020 Generated: 09/09/20 2:47 pm Comments DCP- Discharge Planning Updated by [email or web address]: Molly Lizeth on 09/09/20 12:[address] SPOKE WITH PATIENT ABOUT GOING HOME AND O2 NEEDS, SHE DOES NOT SEEM SOB TALKING WITH ME, SHE STATED THAT SHE WOULD LIKE TO GO HOME SHE UNDERSTANDS THE NEED FOR O2 WHEN SHE AMBULATED TODAY HER POX DROPPED TO 73% PER BLAIR STACY LPN I WILL SPEAK TO [facility] PATIENT'S NURSE ABOUT THIS WALK TEST PATIENT STATED THAT SHE DID NOT FEEL SOB WHEN SHE AMBULATED EITHER DCP- Discharge Planning Updated by [email or web address]: Molly Stanley on 09/09/20 12:[address] YOMI WITH [facility] WILL BE DELIVERING PORTABLE O2 TO PATIENT AND WILL SET UP HOME O2 WHEN SHE GETS HOME DCP- Discharge Planning Updated by [email or web address]: Molly Satnley on 09/09/20 11:[address] I HAVE SENT CLINICALS TO [facility] FOR THE PATIENT TO HAVE HOME O2, I DO NOT SEE A DX FOR HOME O2. WILL WAIT TO SEE WHAT [facility] STATES DCP- Discharge Planning Updated by [id number]: Eugenio Feliciano on 09/08/20 1:[address] CM met with patient to complete DC plan and to evaluate needs. Patient lives independently at home with her , Nahid Alonzo ([phone]). At discharge, the patient plans to return home and feels this is a safe discharge. Patient noted to be dyspneic. O2 sats = 84%. Walk test = 81% on Room air and 95% on 2L. CM discussed availability of home health, rehab services, and medical equipment. Patient declined HHS, SNF, and IPR. Patient stated that "...my will be able to take care of me and my son's a nurse". Patient chose [facility] should she need Oxygen at DC. GARRET signed and placed on chart. Patient voiced no other needs at this time and is satisfied with DC plan. Transportation provider at discharge will be with her , Nahid. DC IMM delivered, explained, signed by the patient, and placed in chart. Signed form also left with the patient. CM will continue to follow and will assist as needed with dc plans/needs. DCPIA - Discharge Planning Initial Assessment Updated by ALLI: Eugenio Feliciano on 09/08/20 2:17 pm * Is the patient Alert and Oriented? Yes * How many steps to enter\\exit or inside your home? 0/0 * PCP HURST * Pharmacy [facility] * Preadmission Environment Home with Family * ADLs Independent * Equipment Walker * Other Equipment n/a * List name and contact numbers for known caregivers / representatives who currently or will assist patient after discharge: NAHID ALONZO ([facility]) [phone] * Verbal permission to speak to the caregivers and representatives has been obtained from the patient. Yes * Community resources currently utilized None * Please name any agencies selected above. n/a * Additional services required to return to the preadmission environment? Yes * Can the patient safely return to the preadmission environment? Yes * Has this patient been hospitalized within the prior 30 days at any hospital? No Coverage Notice Reviewer: ALLI Feliciano Notice Issued Date-Time: 09/08/2020 14:17 Notice Type: IM Discharge Notice Notice Delivered To: Patient Relationship to Patient: Self Nuisance Wildlife Trapper Name: Delivery Method: HAND - Hand Delivered Rose Days: Prior Verbal Notification: Recipient Understood Notice: Yes Recipient Signature: Yes Med Rec Note Co-signed by Attending: Coverage Notice Comment: DC IMM delivered, explained, signed by the patient, and placed in chart. Signed form also left with the patient Reviewer: ALLI Feliciano Notice Issued Date-Time: 09/08/2020 14:17 Notice Type: Patient Choice Letter Notice Delivered To: Patient Relationship to Patient: Self Nuisance Wildlife Trapper Name: Delivery Method: HAND - Hand Delivered Rose Days: Prior Verbal Notification: Recipient Understood Notice: Yes Recipient Signature: Yes Med Rec Note Co-signed by Attending: Coverage Notice Comment: PERI Mcleod DP export: 09/09/20 12:23 p Patient Name: EDISON ALONZO Page [id number] at 1348 All edits/amendments must be made on the electronic document DICTATION DATE: 09/09/20 134 SPECTROGRAPHIC ANALYST: RICARDO 09/09/20 1347 RPT#: [id number] DC DATE: STATUS: ADM IN [facility] [address] [place] [address] END OF REPORT
--- NOTE | 2020-09-09 14:57 | NUR ---
IV DISCONTINUED AND VERBALIZED UNDERSTANDING OF DISCHARGE INSTRUCTIONS. STABLE AT TIME OF DISCHARGE
--- NOTE | 2020-09-11 09:47 | MORECARE ---
CASE MANAGEMENT DISCHARGE SUMMARY PATIENT: EDISON ALONZO UNIT: [id number] ADM DATE: 09/06/20 AGE: 64 : 51 SEX: F ROOM/BED: D.2219 AUTHOR: ISAIAH,DOC PHYSICIAN: REFERRING PHYSICIAN: TIRSO DIXON MD DATE OF SERVICE: 09/11/20 Discharge Plan Patient Name: EDISON ALONZO Facility: [facility]:[place] : 1955 Planned Disposition: Home Anticipated Discharge Date: 09/08/20 Discharge Date: 09/09/2020 Expected LOS: 2 Initial Reviewer: [email or web address] Initial Review Date: 09/06/2020 Generated: 09/11/20 10:46 am Comments DCP- Discharge Planning Updated by [email or web address]: Molly Lizeth on 09/09/20 12:[address] SPOKE WITH PATIENT ABOUT GOING HOME AND O2 NEEDS, SHE DOES NOT SEEM SOB TALKING WITH ME, SHE STATED THAT SHE WOULD LIKE TO GO HOME SHE UNDERSTANDS THE NEED FOR O2 WHEN SHE AMBULATED TODAY HER POX DROPPED TO 73% PER BLAIR STACY LPN I WILL SPEAK TO [facility] PATIENT'S NURSE ABOUT THIS WALK TEST PATIENT STATED THAT SHE DID NOT FEEL SOB WHEN SHE AMBULATED EITHER DCP- Discharge Planning Updated by [id number]: Molly Lizeth on 09/09/20 12:[address] YOMI WITH [facility] WILL BE DELIVERING PORTABLE O2 TO PATIENT AND WILL SET UP HOME O2 WHEN SHE GETS HOME DCP- Discharge Planning Updated by [email or web address]: Molly Stanley on 09/09/20 11:[address] I HAVE SENT CLINICALS TO [facility] FOR THE PATIENT TO HAVE HOME O2, I DO NOT SEE A DX FOR HOME O2. WILL WAIT TO SEE WHAT [facility] STATES DCP- Discharge Planning Updated by [email or web address]: Eugenio Feliciano on 09/08/20 1:[address] CM met with patient to complete DC plan and to evaluate needs. Patient lives independently at home with her , Nahid Alonzo ([phone]). At discharge, the patient plans to return home and feels this is a safe discharge. Patient noted to be dyspneic. O2 sats = 84%. Walk test = 81% on Room air and 95% on 2L. CM discussed availability of home health, rehab services, and medical equipment. Patient declined HHS, SNF, and IPR. Patient stated that "...my will be able to take care of me and my son's a nurse". Patient chose [facility] should she need Oxygen at DC. GARRET signed and placed on chart. Patient voiced no other needs at this time and is satisfied with DC plan. Transportation provider at discharge will be with her , Nahid. DC IMM delivered, explained, signed by the patient, and placed in chart. Signed form also left with the patient. CM will continue to follow and will assist as needed with dc plans/needs. DCPIA - Discharge Planning Initial Assessment Updated by ALLI: Eugenio Feliciano on 09/08/20 2:17 pm * Is the patient Alert and Oriented? Yes * How many steps to enter\\exit or inside your home? 0/0 * PCP H[facility]ST * Pharmacy [facility] * Preadmission Environment Home with Family * ADLs Independent * Equipment Walker * Other Equipment n/a * List name and contact numbers for known caregivers / representatives who currently or will assist patient after discharge: NAHID ALONZO ([facility]) [phone] * Verbal permission to speak to the caregivers and representatives has been obtained from the patient. Yes * Community resources currently utilized None * Please name any agencies selected above. n/a * Additional services required to return to the preadmission environment? Yes * Can the patient safely return to the preadmission environment? Yes * Has this patient been hospitalized within the prior 30 days at any hospital? No Coverage Notice Reviewer: ALLI Feliciano Notice Issued Date-Time: 09/08/2020 14:17 Notice Type: IM Discharge Notice Notice Delivered To: Patient Relationship to Patient: Self Fish Trapper Name: Delivery Method: HAND - Hand Delivered Rose Days: Prior Verbal Notification: Recipient Understood Notice: Yes Recipient Signature: Yes Med Rec Note Co-signed by Attending: Coverage Notice Comment: DC IMM delivered, explained, signed by the patient, and placed in chart. Signed form also left with the patient Reviewer: ALLI Feliciano Notice Issued Date-Time: 09/08/2020 14:17 Notice Type: Patient Choice Letter Notice Delivered To: Patient Relationship to Patient: Self Fish Trapper Name: Delivery Method: HAND - Hand Delivered Rose Days: Prior Verbal Notification: Recipient Understood Notice: Yes Recipient Signature: Yes Med Rec Note Co-signed by Attending: Coverage Notice Comment: PERI Mcleod DP export: 09/09/20 12:48 p Patient Name: EDISON ALONZO Page 79975 at 0947 All edits/amendments must be made on the electronic document DICTATION DATE: 09/11/20945 SHORTS SIFTER: RICARDO 09/11/20945 RPT#: [id number] DC DATE:09/09/20 STATUS: DIS IN [facility] [address] [place] [address] END OF REPORT
== END 2020-09-09 14:57 | disposition home or self-care (01) | DRG 353 ==
LOC: D.ER 15:42 → OBSVTIME 21:20 → D.EDHOLD 21:20 → D.MS 21:20
PROVIDERS: Family Medicine; Internal Medicine Pulmonary Disease; Surgery; ADMIT Emergency Medicine; ATTEND Emergency Medicine
PROC: 0WUF0JZ Supplement Abdominal Wall with Synthetic Substitute, Open Approach (ICD-10-PCS; principal; 2020-09-07 16:00)
PROC: 0WBF0ZZ Excision of Abdominal Wall, Open Approach (ICD-10-PCS; 2020-09-07 16:00)
DX: K42.0 Umbilical hernia with obstruction, without gangrene (principal); J18.9 Pneumonia, unspecified organism; K50.90 Crohn's disease, unspecified, without complications; J98.11 Atelectasis; E03.9 Hypothyroidism, unspecified; I10 Essential (primary) hypertension; K21.9 Gastro-esophageal reflux disease without esophagitis; E66.01 Morbid (severe) obesity due to excess calories; D17.5 Benign lipomatous neoplasm of intra-abdominal organs; L25.9 Unspecified contact dermatitis, unspecified cause; M19.90 Unspecified osteoarthritis, unspecified site; K76.0 Fatty (change of) liver, not elsewhere classified; M81.0 Age-related osteoporosis without current pathological fracture; M79.7 Fibromyalgia; Z68.39 Body mass index [BMI] 39.0-39.9, adult

== ENCOUNTER → 2020-10-30 08:01 | Outpatient (CLI) | payer MEDICARE, OTHER ==
[2020-09-07 23:22] VITALS: BMI 39.9
[~2020-10-30 08:01] MED LIST changes: +DOXEPIN HCL75 MG PO; +ENTYVIO; +SYNTHROID50 MCG PO
== END | disposition home or self-care (01) ==
LOC: D.CT 08:01
PROVIDERS: ATTEND Surgery
DX: D36.10 Benign neoplasm of peripheral nerves and autonomic nervous system, unspecified (principal)

== ENCOUNTER 2020-11-20 05:50 | Day surgery (SDC) | payer MEDICARE, OTHER ==
[~2020-11-20] VITALS: Ht 162.6 cm; Wt 101.8 kg
[~2020-11-20 05:50] MED LIST changes: +ZANAFLEX4 MG PO
[2020-11-20 06:05] LABS: BASOPHILS 0.9 % (0-2); EOSINOPHILS 2.7 % (0-7); HEMATOCRIT 42.7 % (36.0-48.0); HEMOGLOBIN 14.2 g/dL (12-16); IMMATURE GRANULOCYTES 0.2 % (0-5); LYMPHOCYTE ABS# 2.47 10x3/uL (1.18-3.74); LYMPHOCYTES 27.4 % (15-50); MCH 28.9 pg (26.0-34.0); MCHC 33.3 g/dL (31.0-37.0); MEAN PLATELET VOLUME 12.8 fL (7.4-10.4); MONOCYTES 8.9 % (2-11); NEUTROPHIL ABS# 5.39 10x3/uL (1.56-6.13); NEUTROPHILS 59.9 % (40-80); PLATELET COUNT 219 10x3/uL (130-400); RBC 4.91 10x6/uL (4.00-5.40); RDW 13.9 % (11.5-14.5)
[2020-11-20 06:15] LABS: CALC OSMOLALITY 286 mosm/kg (275-300); CALCIUM 9.9 mg/dL (8.5-10.1); CARBON DIOXIDE 29.6 mmol/L (21.0-32.0); CHLORIDE - SERUM 103 mmol/L (98-107); CREATININE - SERUM 0.8 mg/dL (0.6-1.3); GLUCOSE 147 mg/dL (74-106); SODIUM 142 mmol/L (136-145); UREA NITROGEN 14 mg/dL (7-18); eGFR NON AFRICAN AMERICAN 76 mL/min (90-120)
[2020-11-20 06:30] VITALS: BP 153/73; Ht 162.6 cm; Wt 101.8 kg
[2020-11-20] MEDS ORDERED: ZOFRAN ODT4 MG/UDTAB PO (07:01)
[2020-11-20] MEDS ORDERED: HYDROCODON-ACE1 EAC7 PO (07:01)
--- NOTE | 2020-11-20 09:45 | NUR ---
IV DC'D WITH CATH TIP INTACT. PT GETTING DRESSED FOR DISCHARGE. 1002- DISCHARGED VIA W/C, ACCOMPANIED BY THIS NURSE, TO POV WITH SPOUSE DRIVING. ALL BELONGINGS WITH PT/SPOUSE.
--- NOTE | 2020-11-20 15:07 | OP ---
PATIENT NAME: EDISON ALONZO MEDICAL RECORD: [id number] :51 LOCATION:D.OPS ADMISSION DATE: SURGEON: JORGE L ORTIZ DO DATE OF OPERATION: 11/20/2020 PROCEDURE PERFORMED: Excision of mass, lipoma on the left anterior knee. PREOPERATIVE DIAGNOSIS: Soft tissue mass, left knee, likely lipoma. POSTOPERATIVE DIAGNOSIS: Soft tissue mass, left knee, likely lipoma. INDICATIONS: Ms. Alonzo is a 65-year-old female who has had a mass in her left anterior knee for quite some time. She said it gets bigger and gets smaller and then gives her trouble. She wanted it removed as it was quite bothersome. I informed her of the risks of this including recurrence, infection, bleeding, damage to nerves or vessels, need for further surgery, continued pain. She was okay with that and signed consent. SURGEON: Jorge L Ortiz DO DESCRIPTION OF PROCEDURE: The patient was taken to the operative suite, laid in supine position, given general anesthetic and LMA was placed. The left lower extremity was then prepped and draped in sterile fashion. A timeout was performed. Everyone was in agreeance with the correct site, side, patient and procedure. She did receive preoperative antibiotics. The incision was then marked out. It was a mass approximately 4 cm x 2 cm. I made an incision over it on the anterior knee after exsanguinating the left lower extremity with an Esmarch and tourniquet was inflated to 350 mmHg, it was up for 3 minutes. I made an incision through the skin and then used a pickup and scissors and freed up the mass, what appeared to be a lipoma. It was sent to the lab. I then after removing it looked in the area to see if there was anything else and there was not. We then let the tourniquet down. Any bleeding was coagulated with a pickup and a Bovie. Then, Dru Esquivel, certified surgical presser first closed the skin with 2-0 Vicryl in inverted interrupted fashion, 4-0 Monocryl ran on the skin, dressed with Steri-Strips, Adaptic, 4 x 4, ABD, Webril, Jesús wrap and she was then prepped for the following procedure by Dr. Corbin Antoine. TRANSINT:[id number] Voice Confirmation ID: [id number] DOCUMENT ID: [id number] JORGE L ORTIZ DO at 1507 CC: [id number] DICTATION DATE: 11/20/20 0743 POWDERED SUGAR SUPERVISOR: 11/20/20 1400 [facility] 11/20/20 [facility] [address] [id number]
== END 2020-11-20 10:02 | disposition home or self-care (01) ==
LOC: D.OPS 05:50
PROVIDERS: Surgery; ATTEND Orthopaedic Surgery
DX: D17.24 Benign lipomatous neoplasm of skin and subcutaneous tissue of left leg (principal); M25.562 Pain in left knee